=== PATIENT | male | born 1940 | race Caucasian/White ===

== ENCOUNTER 2022-06-15 09:02 | Outpatient (CLI) | payer MEDICARE, BC, SELFPAY ==
[2022-06-15 12:19] LABS: Chloride* 106 mmol/L (96-114); Sodium* 140 mmol/L (135-149)
[2022-06-15 12:20] LABS: Potassium* 4.6 mmol/L (3.6-5.1)
[2022-06-15 12:22] LABS: Carbon Dioxide* 27 mmol/L (20-32); Creatinine* 0.7 mg/dL (0.5-1.5); Estimated Glomerular Filt Rate 93 ml/min
[2022-06-15 12:23] LABS: Blood Urea Nitrogen* 14 mg/dL (7-30); Calcium* 9.6 mg/dL (8.4-10.6); Glucose* 101 mg/dL (60-115)
== END 2022-06-15 09:03 | disposition home or self-care (01) ==
LOC: NFLDREF 09:03
PROVIDERS: PCP Internal Medicine; Visit Provider Internal Medicine
DX: Z01.810 Encounter for preprocedural cardiovascular examination (principal)
CPT/HCPCS: 80048

== ENCOUNTER 2023-03-23 11:37 | Outpatient (REF) | payer MEDICARE, BC, SELFPAY ==
[2023-03-23 12:25] LABS: Basophils Absolute Auto 0.06 K/uL (0.00-0.30); Basophils Percent Auto 1.3 % (0.0-3.0); Eosinophils Absolute Auto 0.08 K/uL (0.00-0.50); Eosinophils Percent Auto 1.8 % (0.0-7.0); Hematocrit 38.8 % (37.0-53.0); Hemoglobin* 13.3 gm/dL (13.5-17.5); Lymphocytes Absolute Auto 1.33 K/uL (0.90-2.90); Lymphocytes Percent Auto 29.2 % (20-44); Mean Corpuscular HGB Conc 34 gm/dL (32-36); Mean Corpuscular Hemoglobin 30 pg (26-34); Mean Corpuscular Volume 87 fL (80-100); Monocytes Percent Auto 7.9 % (0.0-11.0); Neutrophils Absolute Auto 2.73 K/uL (1.7-7.0); Neutrophils Percent Auto 59.8 % (42.0-72.0); Platelet Count* 198 K/uL (140-440); RDW Coefficient of Variation % 11.7 % (11.5-15.5); Red Blood Count 4.44 m/uL (4.30-5.90); White Blood Count* 4.56 K/uL (4.50-11.00)
[2023-03-23 12:32] LABS: Slide Review Reflex No
[2023-03-23 13:03] LABS: Chloride* 105 mmol/L (96-114); Potassium* 4.1 mmol/L (3.6-5.1); Sodium* 139 mmol/L (135-149)
[2023-03-23 13:05] LABS: Aspartate Amino Transferase* 23 U/L (12-35); Bilirubin Total* 0.4 mg/dL (0.1-1.5); Carbon Dioxide* 27 mmol/L (20-32); Creatinine* 1.3 mg/dL (0.5-1.5); Estimated Glomerular Filt Rate 55 ml/min
[2023-03-23 13:06] LABS: Alanine Aminotransferase* 20 U/L (4-50); Alkaline Phosphatase* 46 U/L (40-150); Blood Urea Nitrogen* 27 mg/dL (7-30); Calcium* 9.1 mg/dL (8.4-10.6); Glucose* 96 mg/dL (60-115); Total Protein* 6.4 g/dL (6.0-8.3)
== END 2023-03-23 11:38 | disposition home or self-care (01) ==
LOC: NPINS 11:37
PROVIDERS: PCP Internal Medicine
DX: C64.2 Malignant neoplasm of left kidney, except renal pelvis (principal)
CPT/HCPCS: 80053; 85025

== ENCOUNTER 2024-04-01 09:00 | Outpatient (CLI) | payer MEDICARE, BC, SELFPAY ==
--- OUTSIDE RECORDS SUMMARY | 2024-04-02 13:41 | XMS_ITS | Encounter Summary ---
Author Organization [facility] Address [address] [place] [address] Care Team Providers Care Blue Split Trimmer Name Role Phone Elsewhere, Pcp Primary Care Provider Unavailabl e Reason for Visit * Outpatient (Routine) - Closed Specialty Diagnoses / Procedures Referred By Contact Referred To Contact Gastroenterology and Hepatology Diagnoses Cancer Renal Cell Carcinoma Personal History Wesley Qucah M.D. [address] [place] [address] [facility] Referral ID Status Reason Start Date Expiration Date V isits Requested Visits Authorized [id number] Closed Specialty Services Required 12/04/2023 06/04/2025 1 1 Encounter Details Date Type Department Care Team (Latest Contact Info) Description 02/27/2024 4:00 PM CDT Comprehensive Visit Division of Gastroenterology in [place], [place] [address] [place] [phone] Anup Rob M.D. [address] [place] [phone] Cancer Renal Cell Carcinoma Personal History Social History Tobacco Use Types Packs/Day Years Used Date Smoking Tobacco: Never Passive Smoke Exposure: Never Smokeless Tobacco: Never Alcohol Use Standard Drinks/Week Comments Not Currently 0 (1 standard drink = 0.6 oz pur e alcohol) [facility] Utilities Answer Date Recorded In the past 12 months has [employer], gas, oil, or water [employer] threatened to shut off services in your home? No 11/29/2023 Exercise Vital Sign Answer Date Recorde d On average, how many days pe r week do you engage in moderate to strenuous exercise (like a brisk walk)? 4 days 11/29/2023 On average, how many minutes do you engage in exercise at this level? 30 min 11/29/2023 Hunger Vital Sign Answer Date Recorded Within the past 12 months, y ou worried that your food would run out before you got the money to buy more. Never true 11/29/19 24 Within the past 12 months, t he food you bought just didn't last and you didn't have money to get more. Never true 11/29/2023 PRAPARE - Transportation Answer Date Re corded In the past 12 months, has l ack of transportation kept you from medical appointments or from getting medications? No 11/09 In the past 12 months, has l ack of transportation kept you from meetings, work, or from getting things needed for daily living? No 11/29/2023 Nutrition Answer Date Recorded On average, how many serving s of fruits and vegetables do you eat per day (serving size is equal to 1 cup or approximately the size of a tennis ball)? 3-5 11/29/2023 Dental Answer Date Recorded Dental: Regular Dentist Yes 11/29/19 Employment Answer Date Recorded Employment status Retired 11/29/2023 Sex and Gender Information Value Date Recorded Sex Assigned at Male 11/29/2023 8:24 PM CDT Gender Identity Male 11/29/2023 8:24 PM CDT Sexual Orientation Straight 11/29/2023 8: 24 PM CDT documented as of this encounter Consult Notes * Anup Rob M.D. - 02/27/2024 4:00 PM CDT SUBJECTIVE REASON FOR CONSULT Mr. Burr is an 83-year-old man who is referred for mesenteric lymphadenopathy. 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 He has had subsequent followup with CT scans, and he a has no known metastatic disease. He had a CT performed on November 27, 2023, that showed some prominent right-sided mesenteric lymph nodes that were likely to be reactive, although they could not exclude metastases. He had a followup scan on February 10, and the lymph nodes were stable. No other evidence for metastatic disease. It is interesting that hisprevious CT scan performed elsewhere in June had only 225 images compared to the 2023 images on the November scan. ASSESSMENT / PLAN We really do not know how long these lymph nodes have been there. 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 He is apparently scheduled for CT followup in June anyway, so I think monitoring these is the best step to take at this time. I do not see any need for any further intervention. Anup Rob M.D. CT CT Job ID: [id number]/jab documented in this encounter Plan of Treatment Upcoming Encounters Date Type Department Care Team (Late st Contact Info) Description 08/25/2024 1:30 PM SYSTEM SUPPORT ADMINISTRATOR Office Visit Department of Dermatology in [address] [phone] Gloria Rodrigez M.D. [address] [place] [phone] Discharge Disposition: Home or Self Care documented as of this encounter Visit Diagnoses Diagnosis Cancer Renal Cell Carcinoma Personal History documented in this encounter Care Teams Blue Split Trimmer Relationship Specialty Start Date End Date Elsewhere, Pcp PCP - General Medical Instructor 12/26/23 documented as of this encounter
--- OUTSIDE RECORDS SUMMARY | 2024-04-02 13:41 | XMS_ITS | Encounter Summary ---
Author Organization [facility] Address [address] [place] [address] Care Team Providers Care Feather Trimmer Name Role Phone Elsewhere, Pcp Primary Care Provider Unavailabl e Encounter Details Date Type Department Care Team (Latest Contact Info) Description 02/11/2024 1:33 PM CDT - 02/11/2024 2:05 PM CDT Hospital Encounter Department of Laboratory Medicine and Pathology, [facility] in [place], [place] [address] [place] [address] Cirilo Jay Jr., D.O. [address] [place] [address] Cancer Renal Cell Carcinoma Personal History; Hyperlipidemia Mixed; Solitary Kidney Acquired; Benign Prostatic Hyperplasia Without Obstruction; Gastroesophageal Reflux Disease Without Esophagitis Discharge Disposition: Home or Self Care Social History Tobacco Use Types Packs/Day Years Used Date Smoking Tobacco: Never Passive Smoke Exposure: Never Smokeless Tobacco: Never Alcohol Use Standard Drinks/Week Comments Not Currently 0 (1 standard drink = 0.6 oz pur e alcohol) [facility] Utilities Answer Date Recorded In the past 12 months has [employer], gas, oil, or water [employer] threatened to shut off services in your [...] PM CDT documented as of this encounter Medications at Time of Discharge Medication Sig Dispensed Refills Start Date End Date acetaminophen (TYLENOL) 500 mg tablet Take 1 tablet by mouth at bedtime as needed. 03/07/2023 cycloSPORINE (RESTASIS MULTIDOSE) 0.05 % drops oththalmic suspension Administer 1 drop into affected eye(s) 2 (two) times a day. multivitamin tablet Take 1 tablet by mouth daily. simvastatin (ZOCOR) 40 mg tablet Take 40 mg by mouth daily. tamsulosin (FLOMAX) 0.4 mg 24 hr capsule Take 1 capsule (0.4 mg total) by mouth daily. 90 capsule 3 08/13/2023 02/13/2024 documented as of this encounter Plan of Treatment Upcoming Encounters Date Type Department Care Team (Late st Contact Info) Description 08/25/2024 1:30 PM HEALTH CARE FACILITIES INSPECTOR Office Visit Department of Dermatology in [address] [phone] Gloria Rodrigez M.D. [address] [place] [phone] Discharge Disposition: Home or Self Care documented as of this encounter Procedures Procedure Name Priority Date/Time Associated Diagnosis Comments DIPSTICK, U Routine 02/11/2024 2:01 PM CDT MICROSCOPIC AUTOMATED Routine 02/11/2024 2:01 PM CDT PH, U Routine 02/11/2024 2:01 PM CDT ALBUMIN, RANDOM, U Routine 02/11/2024 2: 01 PM CDT Cancer Renal Cell Carcinoma Personal History Hyperlipidemia Mixed Solitary Kidney Acquired Benign Prostatic Hyperplasia Without Obstruction Gastroesophageal Reflux Disease Without Esophagitis OSMOLALITY, U Routine 02/11/2024 2:01 PM CDT URINALYSIS WITH MICROSCOPIC Routine 02/11/2024 2:01 PM CDT Cancer Renal Cell Carcinoma Personal History Hyperlipidemia Mixed Solitary Kidney Acquired Benign Prostatic Hyperplasia Without Obstruction Gastroesophageal Reflux Disease Without Esophagitis documented in this encounter Results * Osmolality, Urine (02/11/2024 2:01 PM CDT) Osmolality, U 632 150 - 1150 mOsm/kg 02/11/2024 3:05 PM CDT DTL Urine 02/11/2024 2:01 PM CDT 02/11/2024 2:14 PM CDT Hanh Chaudhary Jr.O. LAB URINE OR DERABLES [facility] [address] [place] [address], [place] DTL [facility] [address] [place] [address] * pH, Urine (02/11/2024 2:01 PM CDT) Pathologist [facility] pH, U 6.0 4.5 - 8.0 02/11/2024 3:0 5 PM CDT DTL Urine 02/11/2024 2:01 PM CDT 02/11/2024 2:14 PM CDT Cirilo Jay Jr., D.O. LAB URINE OR DERABLES Performing Organization Address [facility] Co de Phone Number [facility] [address] [place] [address], [facility] [address] [place] [address] * Dipstick, Urine (02/11/2024 2:01 PM CDT) [facility] Hemoglobin, QL, U Negative Negative 02/11/2024 3:13 PM CDT DTL Leukocyte Esterase, U Negative Negative 02/11/2024 3:13 PM CDT DTL Nitrite, U Negative Negative 02/11/2024 3:13 PM CDT DTL Ketone, U Negative Negative mg/dL 02/11/2024 3:13 PM CDT DTL Glucose, U Negative Negative mg/dL 02/11/2024 3:13 PM CDT DTL Urine 02/11/2024 2:01 PM CDT 02/11/2024 2:14 PM CDT Cirilo Jay Jr., D.O. LAB URINE OR DERABLES Performing Organization Address [facility] Co de Phone Number [facility] [address] [place] [address], [facility] [address] [place] [address] * Microscopic Automated (02/11/2024 2:01 PM CDT) [facility] Microscopy Normal 02/11/2024 3:13 PM CDT DTL RBC None Seen <3 /hpf 02/11/2024 3:13 PM CDT DTL WBC None Seen /hpf 02/11/2024 3:13 PM CDT DTL Comment: ----REFERENCE VALUE---- <4 ??(Males) <11 (Females) Urine 02/11/2024 2:01 PM CDT 02/11/2024 2:14 PM CDT Cirilo Jay Jr., D.O. LAB URINE OR DERABLES Performing Organization Address [facility] Co de Phone Number [facility] [address] [place] [address], [facility] [address] [place] [address] * Urinalysis, with Microscopic: Urine, Voided (02/11/2024 2:01 PM CDT) Source Urine, Urine, Voided 02/11/2024 2:14 PM CDT DTL Color, U Yellow 02/11/2024 2:14 PM CDT DTL Clarity, U Clear 02/11/2024 2:14 PM CDT DTL Protein, U 9 <26 mg/dL 02/11/2024 3:07 PM CDT DTL Protein/Osmola lity 0.14 <0.42 ratio 02/11/2024 3:07 PM CDT DTL Predicted 24 HR Protein, U 147 <229 mg/24 h 02/11/2024 3:07 PM CDT DTL Predicted Range 47-463 mg/24 h 02/11/2024 3:07 PM CDT DTL Urine (Urine, Voided) 02/11/2024 2:01 PM CDT 02/11/2024 2:14 PM CDT Cirilo Jay Jr., D.O. LAB URINE OR DERABLES Performing Organization Address [facility] Co de Phone Number [facility] [address] [place] [address], [facility] [address] [place] [address] * Albumin, Random, Urine (02/11/2024 2:01 PM CDT) Albumin, Random, U 5.8 mg/L 2023 7:33 AM CDT DTL Comment: ----ADDITIONAL INFORMATION---- This test has been modified from the rn lab's instructions. Its performance characteristics were determined by [facility] in a manner consistent with CLIA requirements. This test has not been cleared or approved by the U.S. Food and Drug Administration. Creatinine 86 mg/dL 02/11/2024 3:07 PM CDT DTL Albumin/Creatinine Ratio 7 <17 mg/g 02/12/2024 7:33 AM CDT DTL Urine (Urine, Voided) 02/11/2024 2:01 PM CDT 02/11/2024 2:31 PM CDT Cirilo Jay Jr., D.O. LAB URINE OR DERABLES [facility] [address] [place] [address], [facility] [address] [place] [address] documented in this encounter Visit Diagnoses Diagnosis Cancer Renal Cell Carcinoma Personal History Hyperlipidemia Mixed Solitary Kidney Acquired Benign Prostatic Hyperplasia Without Obstruction Gastroesophageal Reflux Disease Without Esophagitis documented in this encounter Care Teams Feather Trimmer Relationship Specialty Start Date End Date Elsewhere, Pcp PCP - General Direct Entry Midwife 12/26/23 documented as of this encounter
--- OUTSIDE RECORDS SUMMARY | 2024-04-02 13:41 | XMS_ITS ---
Author Organization [facility] Address [address] [place] [address] Care Team Providers Care Attendant Honor Bar Name Role Phone Unavailable Unavailable Unavailable Surgery Details Not on file Complications Check Surgery Details section. Procedure Estimated Blood Loss Check Surgery Details section. Procedure Findings Check Surgery Details section. Procedure Specimens Taken Check Surgery Details section.
--- OUTSIDE RECORDS SUMMARY | 2024-04-02 13:41 | XMS_ITS | Encounter Summary ---
Author Organization [facility] Address [address] [place] [address] Care Team Providers Care Disaster Recovery Consultant Name Role Phone Elsewhere, Pcp Primary Care Provider Unavailabl e Reason for Referral * MRI/CAT/PET Scan (Routine) - Authorized Specialty Diagnoses / Procedures Referred By Michele rivera Referred To Contact Radiology Diagnoses Cancer Renal Cell Carcinoma Personal History Solitary Kidney Acquired Benign Prostatic Hyperplasia Without Obstruction Procedures CT Abdomen Pelvis without and with IV Contrast Cirilo Jay Jr., D.O. [address] [place] [address] [facility] Referral ID Status Reason Start Date Expiration Date V isits Requested Visits Authorized [id number] Authorized 02/13/2024 02/12/2025 1 1 Reason for Visit * Appointment Request (Routine) - Closed Specialty Diagnoses / Procedures Referred By Michele rivera Referred To Contact Nephrology and Hypertension Referral ID Status Reason Start Date Expiration Date Visits Re quested Visits Authorized [id number] Closed 12/28/2023 12/27/2024 1 1 Encounter Details Date Type Department Care Team (Latest Contact Info) Description 02/13/2024 8:30 AM CDT External Outreach Division of Nephrology and Hypertension in [place], [place] [address] [place] [address] Cirilo Jay Jr., D.O. [address] [place] [address] Cancer Renal Cell Carcinoma Personal History (Primary Dx); Solitary Kidney Acquired; Benign Prostatic Hyperplasia Without Obstruction Social History Tobacco Use Types Packs/Day Years Used Date Smoking Tobacco: Never Passive Smoke Exposure: Never Smokeless Tobacco: Never Alcohol Use Standard Drinks/Week Comments Not Currently 0 (1 standard drink = 0.6 oz pur e alcohol) [facility] Utilities Answer Date Recorded In the past 12 months has e [email or web address], gas, oil, or water [employer] threatened to shut off services in your [...] money to buy more. Never true 11/29/19 Within the past 12 months, t he [...] PM CDT documented as of this encounter Last Filed Vital Signs Vital Sign Reading Time Taken Comments Blood Pressure 124/75 02/13/2024 8:38 AM CDT Pulse 63 02/13/2024 8:38 AM CDT Temperature - - Respiratory Rate - - Oxygen Saturation - - Inhaled Oxygen Concentration - - Weight 99.9 kg (220 lb 3.8 oz) 02/13/2024 8:38 A M CDT Height 178.4 cm (5' 10.24) 02/13/2024 8:38 AM C DT Body Mass Index 31.39 02/13/2024 8:38 AM CDT documented in this encounter Progress Notes * Cirilo Jay Jr., D.O. - 02/13/2024 8:30 AM CDT Referring Provider: ELSEWHERE, PCP SUBJECTIVE REASON FOR VISIT [facility] out reach CKD Follow-up regards CKD following left nephrectomy performed in July of 2022. HISTORY OF PRESENT ILLNESS Mr. Burr is a 83 y.o. male who presents with follow-up regarding his CKD with a baseline serum creatinine of 1.3-1.4 mg/dL following resection of a large left renal cell carcinoma in July of 2022. Please see my prior note, he suffered gross hematuria in June of 2022 as he was wintering in [place]. Was discovered to have a 10 cm left renal mass for which he underwent EN bloc resection along with lymph node dissection and fortunately, no evidence of metastatic disease was found. His baseline serum creatinine has remained between 1.3 and 1.4 since that time. Appreciate his ongoing active surveillance has demonstrated no evidence of metastatic disease or recurrence in the prior tumor site. 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 His CTof the chest done back in December, as well as a CT abdomen and pelvis currently do not demonstrate any recurrent disease. Appreciate a chest x-ray performed yesterday was normal as well. He Feels well in all respects has no constitutional complaints no fevers no chills. He has struggling a bit with nocturia, he uses tamsulosin in the morning. We discussed increasing the dose and having him take this at nighttime. Appreciate that he has had no other constitutional complaints no chest pain no shortness of breath and I reviewed the evaluations performed. 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 Renal Disease 08/2022 Current Outpatient Medications: acetaminophen (TYLENOL) 500 mg tablet, Take 1 tablet by mouth at bedtime as needed., Disp: , Rfl: cycloSPORINE (RESTASIS MULTIDOSE) 0.05 % drops oththalmic suspension, Administer 1 drop into affected eye(s) 2 (two) times a day., Disp: , Rfl: multivitamin tablet, Take 1 tablet by mouth daily., Disp: , Rfl: simvastatin (ZOCOR) 40 mg tablet, Take 40 mg by mouth daily., Disp: , Rfl: tamsulosin (FLOMAX) 0.4 mg 24 hr capsule, Take 1 capsule (0.4 mg total) by mouth daily., Disp: 90 capsule, Rfl: 3 REVIEW OF SYSTEMS All other systems reviewed and are negative. OBJECTIVE BP 124/75 Pulse 63 Ht 178.4 cm Wt 99.9 kg BMI 31.39 kg/m?? PHYSICAL EXAMINATION General: Awake alert oriented HEENT: GENESIS, EOMI, Mucous membranes moist, no oral lesions Neck: No Masses, No Bruits Lungs: Clear to ascultation Heart: Regular Rate and Rhythm, No ectopy he has a 3/6 systolic ejection murmur at left lower sternal edge Abdomen: Soft, Non-tender Extremities: No cyanosis, No clubbing: No edema Neuro: Cranial Nerves intact, Gait is normal, strength grossly normal Skin: no suspicious lesions identified Psychiatric: Normal affect DIAGNOSTICS Note serum creatinine 1.4 mg/dL, appreciate normal urinalysis without hematuria or albuminuria normal CBC normal chemistries otherwise. I congratulated him. Also reviewed his imaging with him. ASSESSMENT / PLAN #1 Cancer Renal Cell Carcinoma Personal History He is status post left nephrectomy, and doing well from this perspective I congratulated him. We will continue with active surveillance, he will be seen by our [facility] urologists and I will also continue to follow him regarding his solitary functional kidney and CKD stage IIIA with a serum creatinine of 1.4 mg/dL. #2 Solitary Kidney Acquired Going forward: 1. Low-sodium diet 2. Goal blood pressures less than 130s over 80s 3. No NSAIDs or Shelton 2 inhibitors 4. Stay well hydrated-drinking at least 4 8 oz glasses of water per day 5. I will see him back in 6 months with pre scheduled labs in [place]. #3 Benign Prostatic Hyperplasia Without Obstruction He has been having issues with irritated outlet, and lower urinary tract symptoms, predominantly nocturia incomplete emptying. I will increase his tamsulosin to 2 x 0.4 mg orally daily, while his current supply is used up and then switch to 0.8 mg per day tablets. He will switch taking this at night. Total time: 35 minutes Counseling Time: 30 minutes Cirilo Jay Jr., D.O. documented in this encounter Plan of Treatment Upcoming Encounters Date Type Department Care Team (Late st Contact Info) Description 08/25/2024 1:30 PM POLICY ADVISER Office Visit Department of Dermatology in [address] [phone] Gloria Rodrigez M.D. [address] [place] [address] Discharge Disposition: Home or Self Care Scheduled Orders Name Type Priority Associated Diagnoses Orde r Schedule CBC with Differential, Blood Lab Routine Cancer Renal Cell Carcinoma Personal History Solitary Kidney Acquired Benign Prostatic Hyperplasia Without Obstruction Expected: 08/14/2024 (Approximate), Expires: 02/12/2025 Albumin, Random, Urine Lab Routine Cancer Renal Cell Carcinoma Personal History Solitary Kidney Acquired Benign Prostatic Hyperplasia Without Obstruction Expected: 08/14/2024 (Approximate), Expires: 02/12/2025 Renal Function Panel Lab Routine Cancer Renal Cell Carcinoma Personal History Solitary Kidney Acquired Benign Prostatic Hyperplasia Without Obstruction Expected: 08/14/2024 (Approximate), Expires: 02/12/2025 Urinalysis, with Microscopic: Urine, Voided Lab Routine Cancer Renal Cell Carcinoma Personal History Solitary Kidney Acquired Benign Prostatic Hyperplasia Without Obstruction Expected: 08/14/2024 (Approximate), Expires: 02/12/2025 CT Abdomen Pelvis without and with IV Contrast Imaging RAD - Routine (most inpatients and all outpatients) Cancer Renal Cell Carcinoma Personal History Solitary Kidney Acquired Benign Prostatic Hyperplasia Without Obstruction Expected: 08/14/2024, Expires: 05/15/2025 documented as of this encounter Visit Diagnoses Diagnosis Cancer Renal Cell Carcinoma Personal History- Primary Solitary Kidney Acquired Benign Prostatic Hyperplasia Without Obstruction documented in this encounter Care Teams Disaster Recovery Consultant Relationship Specialty Start Date End Date Elsewhere, Pcp PCP - General Hvac Engineer 12/26/23 documented as of this encounter
--- OUTSIDE RECORDS SUMMARY | 2024-04-02 13:41 | XMS_ITS | Clinical Summary ---
Author Organization [facility] Address [address] [place] [address] Care Team Providers Care Power Transmission Engineer Name Role Phone Elsewhere, Pcp Primary Care Provider Unavailabl e Source Comments Patient records contain information from all sites at [facility]. For routine questions regarding patient records, call [phone] during business hours, M-F 8:00 AM - 5:00 PM Central Time. Record requests for emergency care only can be directed to [phone] at any time.[facility] Allergies No known active allergies Medications Medication Sig Dispensed Refills Start Date End Date Status cycloSPORINE (RESTASIS MULTIDOSE) 0.05 % drops oththalmic suspension Administer 1 drop into affected eye(s) 2 (two) times a day. Active simvastatin (ZOCOR) 40 mg tablet Take 40 mg by mouth daily. Active acetaminophen (TYLENOL) 500 mg tablet Take 1 tablet by mouth at bedtime as needed. 03/07/2023 Active multivitamin tablet Take 1 tablet by mouth daily. Active tamsulosin (FLOMAX) 0.4 mg 24 hr capsule Take 2 capsules (0.8 mg total) by mouth daily. 180 capsule 3 02/14/2024 02/13/2025 Active Active Problems Problem Noted Date Diagnosed Date Hyperlipidemia Mixed 08/13/2023 Gastroesophageal Reflux Disease Without Esophagi tis 08/13/2023 Benign Prostatic Hyperplasia Without Obstruction 08/13/2023 Solitary Kidney Acquired 08/13/2023 Cancer Renal Cell Carcinoma Personal History 12/2022 Encounters Date Type Department Care Team Description 02/27/2024 4:00 PM CDT Comprehensive Visit Division of Gastroenterology in [place], [place] [address] [place] [phone] Anup Rob M.D. Cancer Renal Cell Carcinoma Personal History 02/27/2024 11:30 AM CDT Clinical Communication Virtual Review in [place], [place] [address] [place] [phone] 02/14/2024 Orders Only Division of Nephrology and Hypertension in [place], [place] [address] [place] [phone] Cirilo Jay Jr., D.OSarah 02/13/2024 8:30 AM CDT External Outreach Division of Nephrology and Hypertension in [place], [place] [address] [place] [phone] Cirilo Jay Jr., D.OSarah Cancer Renal Cell Carcinoma Personal History (Primary Dx); Solitary Kidney Acquired; Benign Prostatic Hyperplasia Without Obstruction 02/11/2024 2:47 PM CDT - 02/11/2024 11:59 PM CDT Hospital Encounter Department of Radiology, [facility] in [place], [place] [address] [place] [phone] Cirilo Jay Jr., D.OSarah Cancer Renal Cell Carcinoma Personal History; Hyperlipidemia Mixed; Solitary Kidney Acquired; Benign Prostatic Hyperplasia Without Obstruction; Gastroesophageal Reflux Disease Without Esophagitis Discharge Disposition: Home or Self Care 02/11/2024 2:06 PM CDT - 02/11/2024 2:46 PM CDT [facility] [place] [place] [address] [place] [phone] Cirilo Jay Jr., D.OSarah Cancer Renal Cell Carcinoma Personal History; Hyperlipidemia Mixed; Solitary Kidney Acquired; Benign Prostatic Hyperplasia Without Obstruction; Gastroesophageal Reflux Disease Without Esophagitis Discharge Disposition: Home or Self Care 02/11/2024 1:33 PM CDT - 02/11/2024 2:05 PM CDT Hospital Encounter Department of Laboratory Medicine and Pathology, [facility] in [place], [place] [address] [place] [phone] Cirilo Jay Jr., D.O. Cancer Renal Cell Carcinoma Personal History; Hyperlipidemia Mixed; Solitary Kidney Acquired; Benign Prostatic Hyperplasia Without Obstruction; Gastroesophageal Reflux Disease Without Esophagitis Discharge Disposition: Home or Self Care 02/11/2024 1:33 PM CDT - 02/11/2024 2:05 PM CDT Hospital Encounter Department of Laboratory Medicine and Pathology, [facility] in [place], [place] [address] [place] [phone] Cirilo Jay Jr., D.Ayaz. Cancer Renal Cell Carcinoma Personal History; Hyperlipidemia Mixed; Solitary Kidney Acquired; Benign Prostatic Hyperplasia Without Obstruction; Gastroesophageal Reflux Disease Without Esophagitis Discharge Disposition: Home or Self Care 01/04/2024 11:55 AM CDT - 01/04/2024 11:59 PM CDT Hospital Encounter Department of Cardiovascular Diseases in [place], [place] [address] [place] [phone] Marcia Dewitt, GEO, C.N.P., D.N.P. [facility] Discharge Disposition: Home or Self Care from Last 3 Months Family History Medical History Relation Name Comments Coronary artery disease Father Francisco Burr Heart attack age 75, mild Relation Name Status Comments Father Francisco Burr Social History Tobacco Use Types Packs/Day Years Used Date Smoking Tobacco: Never Passive Smoke Exposure: Never Smokeless Tobacco: Never Tobacco Cessation:Counseling Given: Not Answered Alcohol Use Standard Drinks/Week Comments Not Currently 0 (1 standard drink = 0.6 oz pur e alcohol) [facility]OLUS PHARMACEUTICALSities Answer Date Recorded In the past 12 months has [employer], [employer]ath [employer] Life, oil, or water [employer] threatened to shut off services in your [...] Orientation Straight 11/29/2023 8: 24 PM CDT Last Filed Vital Signs Vital Sign Reading [...] Mass Index 31.39 02/13/2024 8:38 AM CDT Plan of Treatment Upcoming Encounters Date Type Department Care Team (Late st Contact Info) Description 08/25/2024 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 [address] [place] [phone] Discharge Disposition: Home or Self Care Health Maintenance Due Date Last Done Comments COVID-19 Vaccine (2022- 4 season) 2023 07/12/2021, 10/25/2020, 10/01/2020 Depression Screening (Annual PHQ-2) 09/10/2023 Influenza Vaccine (#1) 2024 , 07/10/2022, 05/20/2022, Additional history exists DTaP,Tdap,and Td Vaccines (6 - Td or Tdap) 04/07/2031 04/07/2021, 02/10/2011, 09/10/2010, Additional history exists Pneumococcal vaccine (65+ years) Completed 03/27/2016, 06/10/2015, 05/24/2015, Additional history exists Zoster Vaccines Completed 03/31/2020, 02/08, 12/25/2018, Additional history exists Fall Risk Screen (Annual) Completed 01/04/2024 Procedures Procedure Name Priority Date/Time Associated Diagnosis Comments CT ABDOMEN WITH IV CONTRAST RAD - Routine (most inpatients and all outpatients) 02/11/2024 4:11 PM CDT Cancer Renal Cell Carcinoma Personal History Hyperlipidemia Mixed Solitary Kidney Acquired Benign Prostatic Hyperplasia Without Obstruction Gastroesophageal Reflux Disease Without Esophagitis CREATININE, POCT, B Routine 02/11/2024 3:26 PM CDT CREATININE, POCT, B Routine 02/11/2024 3:26 PM CDT DX CHEST AP OR PA AND LATERAL 2 VIEWS RAD - Routine (most inpatients and all outpatients) 02/11/2024 2:12 PM CDT Cancer Renal Cell Carcinoma Personal History Hyperlipidemia Mixed Solitary Kidney Acquired Benign Prostatic Hyperplasia Without Obstruction Gastroesophageal Reflux Disease Without Esophagitis OSMOLALITY, U Routine 02/11/2024 2:01 PM CDT PH, U Routine 02/11/2024 2:01 PM CDT DIPSTICK, U Routine 02/11/2024 2:01 PM CDT MICROSCOPIC AUTOMATED Routine 02/11/2024 2:01 PM CDT URINALYSIS WITH MICROSCOPIC Routine 02/11/2024 2:01 PM CDT Cancer Renal Cell Carcinoma Personal History Hyperlipidemia Mixed Solitary Kidney Acquired Benign Prostatic Hyperplasia Without Obstruction Gastroesophageal Reflux Disease Without Esophagitis ALBUMIN, RANDOM, U Routine 02/11/2024 2: 01 PM CDT Cancer Renal Cell Carcinoma Personal History Hyperlipidemia Mixed Solitary Kidney Acquired Benign Prostatic Hyperplasia Without Obstruction Gastroesophageal Reflux Disease Without Esophagitis RENAL FUNCTION PANEL, S Routine 02/11/2024 1:57 PM CDT Cancer Renal Cell Carcinoma Personal History Hyperlipidemia Mixed Solitary Kidney Acquired Benign Prostatic Hyperplasia Without Obstruction Gastroesophageal Reflux Disease Without Esophagitis LIPID PANEL, S Routine 02/11/2024 1:57 PM CDT Cancer Renal Cell Carcinoma Personal History Hyperlipidemia Mixed Solitary Kidney Acquired Benign Prostatic Hyperplasia Without Obstruction Gastroesophageal Reflux Disease Without Esophagitis CBC WITH DIFFERENTIAL, B Routine 02/11/2024 1:57 PM CDT Cancer Renal Cell Carcinoma Personal History Hyperlipidemia Mixed Solitary Kidney Acquired Benign Prostatic Hyperplasia Without Obstruction Gastroesophageal Reflux Disease Without Esophagitis (TTE) 2D ECHO DOPPLER COLOR Routine 01/04/2024 1:36 PM CDT [facility] from Last 3 Months Results * CT Abdomen with IV Contrast (02/11/2024 4:11 PM CDT) Anatomical Region Laterality Modality Abdomen, Abdominal RST LOS, Abdominal ARZ LOS, Abdominal FLA LOS N/A Computed Tomography, Comput ed Tomography 02/11/2024 3:53 PM CDT Impressions 02/12/2024 8:22 AM CDT 1. No evidence of recurrent or metastatic disease in the abdomen or pelvis. 2. Stable prominent mesenteric lymph nodes. Narrative 02/12/2024 8:22 AM CDT EXAM: ??CT ABDOMEN WITH IV CONTRAST COMPARISON: ??CT of the abdomen and pelvis 11/27/2023 FINDINGS: ??Postoperative changes of left nephrectomy. No evidence of locally recurrent renal cell carcinoma in the nephrectomy bed. Small right renal cyst. Prominent mesenteric lymph nodes are not substantially changed (series 4, image 84). No other enlarged lymph nodes in the abdomen or pelvis. 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 No worrisome liver lesion. The spleen, gallbladder and adrenal glands are normal in appearance. Normal caliber aorta with moderate atherosclerotic calcification. Colonic diverticulosis. Normal caliber small bowel and colon. Normal appendix. Stable ventral abdominal wall hernia containing nonobstructed small bowel. The prostate gland is enlarged. The seminal vesicles are symmetric. The urinary bladder appears normal. No ascites. Multilevel degenerative disc disease of the lumbosacral spine. No worrisome bone lesion. Mild scarring at both lung bases. Procedure Note Derrick Lauren M.D. - 02/12/2024 EXAM: CT ABDOMEN WITH IV CONTRAST COMPARISON: CT of the abdomen and pelvis 11/27/2023 FINDINGS: Postoperative changes of left nephrectomy. No evidence oflocally recurrent renal cell carcinoma in the nephrectomy bed. Small rightrenal cyst. Prominent mesenteric lymph nodes are not substantially changed (series 4,image 84). No other enlarged lymph nodes in the abdomen or pelvis. 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 No worrisome liver lesion.The spleen, gallbladder and adrenal glands are normal in appearance. Normal caliber aorta with moderate atherosclerotic calcification. Colonicdiverticulosis. Normal caliber small bowel and colon. Normal appendix.Stable ventral abdominal wall hernia containing nonobstructed smallbowel. The prostate gland is enlarged. The seminal vesicles are symmetric. Theurinary bladder appears normal. No ascites. Multilevel degenerative discdisease of the lumbosacral spine. No worrisome bone lesion. Mild scarringat both lung bases. IMPRESSION: 1. No evidence of recurrent or metastatic disease in the abdomen orpelvis. 2. Stable prominent mesenteric lymph nodes. Hanh Chaudhary Jr.O. RAVEN CT PROCE DURES * Creatinine, POCT (02/11/2024 3:26 PM CDT) Only the most recent of2 resultswithin the time period is included. Creatinine, POCT, B 1.4 0.7 - 1.4 mg/dL 02/11/2024 3:29 PM CDT PCDT Comment: ----ADDITIONAL INFORMATION---- Performed at the Point of Care Blood 02/11/2024 3:26 PM CDT 02/11/2024 3:29 PM CDT Unknown Provider LAB POCT ORDERABLES - DEVICE POC [facility] [address] [place] [address], [facility] PCDT [facility] [place] POC [address] [place] [address] * DX Chest AP or PA and Lateral 2 Views (02/11/2024 2:12 PM CDT) Anatomical Region Laterality Modality Chest, Thoracic RST LOS, Tho racic ARZ LOS, Thoracic FLA LOS N/A Digital Radiography Impressions 02/11/2024 2:50 PM CDT No change from 07/02/2023. Mild linear scarring in the middle lobe and bilateral lung bases. Dilatation and tortuosity of the thoracic aorta with mild calcification in correlation with CT chest 12/07/2023. Prominent pericardial fat over the cardiac apex. Slight superior wedging of a few mid thoracic vertebral bodies. Hypertrophic degenerative changes of the skeleton. Chest otherwise negative. Narrative 02/11/2024 2:50 PM CDT EXAM: ??DX CHEST AP OR PA AND LATERAL 2 VIEWS Procedure Note Renetta Gonzalez M.D. - 02/11/2024 EXAM: DX CHEST AP OR PA AND LATERAL 2 VIEWS IMPRESSION: No change from 07/02/2023. Mild linear scarring in the middle lobe andbilateral lung bases. Dilatation and tortuosity of the thoracic aorta withmild calcification in correlation with CT chest 12/07/2023. Prominentpericardial fat over the cardiac apex. Slight superior wedging of a few mid thoracic vertebralbodies. Hypertrophic degenerative changes of the skeleton. Chest otherwisenegative. Cirilo Jay Jr., D.O. IMG DIAGNOST IC IMAGING PROCEDURES * Dipstick, Urine (02/11/2024 2:01 PM CDT) Hemoglobin, QL, U Negative Negative 02/11/2024 3:13 [...] LAB URINE OR DERABLES Performing Organization Address City/[facility] Co de Phone Number [facility] [address] [place] [address], [address] [address] * Microscopic Automated (02/11/2024 2:01 PM CDT) Pathologist [facility] Microscopy Normal 02/11/2024 3:13 PM CDT DTL RBC None Seen <3 /hpf 02/11/2024 3:13 PM CDT DTL WBC None Seen /hpf 02/11/2024 3:13 PM CDT DTL Comment: ----REFERENCE VALUE---- <4 ??(Males) <11 (Females) Urine 02/11/2024 2:01 PM CDT 02/11/2024 2:14 PM CDT Cirilo Jay Jr., D.O. LAB URINE OR DERABLES Performing Organization Address City/[facility]/ZIP Co de Phone Number [facility] [address] [place] [address], [place] [address] * pH, Urine (02/11/2024 2:01 PM CDT) Pathologist [facility] pH, U 6.0 4.5 - 8.0 02/11/2024 3:0 5 PM CDT DTL Urine 02/11/2024 2:01 PM CDT 02/11/2024 2:14 PM CDT Cirilo Jay Jr., D.O. LAB URINE OR DERABLES Performing Organization Address [facility] de Phone Number [facility] [address] [place] [address] * Albumin, Random, Urine (02/11/2024 2:01 PM CDT) Albumin, Random, U 5.8 mg/L 2023 7:33 AM CDT DTL Comment: ----ADDITIONAL INFORMATION---- This test has been modified from the boiler maker's instructions. Its performance characteristics were determined by [facility] in a manner consistent with CLIA requirements. This test has not been cleared or approved by the U.S. Food and Drug Administration. Creatinine 86 mg/dL 02/11/2024 3:07 PM CDT DTL Albumin/Creatinine Ratio 7 <17 mg/g 02/12/2024 7:33 AM CDT DTL Urine (Urine, Voided) 02/11/2024 2:01 PM CDT 02/11/2024 2:31 PM CDT Cirilo Jay Jr., D.O. LAB URINE OR DERABLES Performing Organization Address City/[facility] Co de Phone Number [facility] [address] [place], [place] [address] [place] [address] [address] [place] [address] * Osmolality, Urine (02/11/2024 2:01 PM CDT) Osmolality, U 632 150 - 1150 mOsm/kg 02/11/2024 3:05 PM CDT DTL Urine 02/11/2024 2:01 PM CDT 02/11/2024 2:14 PM CDT Cirilo Jay Jr., D.O. LAB URINE OR DERABLES Performing Organization Address City/[facility]/ZIP Co de Phone Number [facility] [address] [place] [address], [address] [address] * Urinalysis, with Microscopic: Urine, Voided (02/11/2024 [...] Jay Jr., D.O. LAB URINE OR DERABLES [facility] [address] [place] [address], [facility] [address] [place] [address] * Lipid Panel (02/11/2024 1:57 PM CDT) Triglycerides 88 mg/dL 02/11/2024 3:21 PM CDT DTL Comment: ----REFERENCE VALUE---- Normal: <150 mg/dL Borderline High: 150-199 mg/dL High: 200-499 mg/dL Very High: > or =500 mg/dL Cholesterol, Total 153 mg/dL 2023 3:21 PM CDT DTL Comment: ----REFERENCE VALUE---- Desirable: < 200 mg/dL Borderline High: 200 - 239 mg/dL High: > or = 240 mg/dL Cholesterol, LDL, Calculated 84 mg/dL 02/11/2024 3:21 PM CDT DTL Comment: ----REFERENCE VALUE---- Desirable: <100 mg/dL Above Desirable: 100-129 mg/dL Borderline High: 130-159 mg/dL High: 160-189 mg/dL Very High: >=190 mg/dL ----ADDITIONAL INFORMATION---- LDL cholesterol calculated using the Grajeda/NIH equation. Cholesterol, HDL, S 52 >=40 mg/dL 02/11/2024 3:21 PM CDT DTL Cholesterol, Non-HDL, Calculated 101 mg/dL 02/11/2024 3:21 PM CDT DTL Comment: ----REFERENCE VALUE---- Desirable: <130 mg/dL Above Desirable: 130-159 mg/dL Borderline High: 160-189 mg/dL High: 190-219 mg/dL Very High: > or =220 mg/dL Fasting (8 HR or more) Yes 02/11/2024 2:50 PM CDT DTL Blood (Blood, Venous) 02/11/2024 1:57 PM CDT 02/11/2024 2:50 PM CDT Cirilo Jay Jr., D.O. LAB BLOOD AD D-ON [facility] [address] [place] [address], [facility] [address] [place] [address] * (ABNORMAL) Renal Function Panel (02/11/2024 1:57 PM CDT) Potassium, S 4.8 3.6 - 5.2 mmol/L 02/11/2024 3:21 PM CDT DTL Sodium, S 142 135 - 145 mmol/L 02/11/2024 3:21 PM CDT DTL Chloride, S 106 98 - 107 mmol/L 02/11/2024 3:21 PM CDT DTL Bicarbonate, S 28 22 - 29 mmol/L 02/11/2024 3:21 PM CDT DTL Anion Gap 8 7 - 15 02/11/2024 3:21 PM CDT DTL BUN (Blood Urea Nitrogen), S 24 8 - 24 mg/dL 02/11/2024 3:21 PM CDT DTL Creatinine 1.41(H) 0.74 - 1.35 mg/dL 02/11/2024 3:21 PM CDT DTL Estimated GFR (eGFR) 50(L) >=60 mL/min/BSA 02/11/2024 3:21 PM CDT DTL Comment: Estimated GFR calculated using the 2020 CKD_EPI creatinine equation. Calcium, Total, S 9.9 8.8 - 10.2 mg/dL 02/11/2024 3:21 PM CDT DTL Glucose, S 84 70 - 140 mg/dL 02/11/2024 3:21 PM CDT DTL Albumin, S 4.5 3.5 - 5.0 g/dL 02/11/2024 3:21 PM CDT DTL Phosphorus (Inorganic), S 3.7 2.5 - 4.5 mg/dL 02/11/2024 3:21 PM CDT DTL Blood (Blood, Venous) 02/11/2024 1:57 PM CDT 02/11/2024 2:50 PM CDT Cirilo Jay Jr. D.O. LAB BLOOD AD D-ON [facility] [address] [place] [address], [facility] [place]note 2[facility] [address] [place] [address] * (ABNORMAL) CBC with Differential, Blood (02/11/2024 1:57 PM CDT) Hemoglobin 13.3 13.2 - 16.6 g/dL 02/11/2024 2:28 PM CDT DTL Hematocrit 39.7 38.3 - 48.6 % 02/11/2024 2:28 PM CDT DTL Erythrocytes 4.46 4.35 - 5.65 x10(12)/L 02/11/2024 2:28 PM CDT DTL MCV 89.0 78.2 - 97.9 fL 02/11/2024 2:28 PM CDT DTL RBC Distrib Width 11.6(L) 11.8 - 14.5 % 02/11/2024 2:28 PM CDT DTL Platelet Count 176 135 - 317 x10(9)/L 02/11/2024 2:28 PM CDT DTL Leukocytes 4.3 3.4 - 9.6 x10(9)/L 02/11/2024 2:28 PM CDT DTL Neutrophils 2.51 1.56 - 6.45 x10(9)/L 02/11/2024 2:28 PM CDT DHPM Lymphocytes 1.25 0.95 - 3.07 x10(9)/L 02/11/2024 2:28 PM CDT DTL Monocytes 0.39 0.26 - 0.81 x10(9)/L 02/11/2024 2:28 PM CDT DTL Eosinophils 0.07 0.03 - 0.48 x10(9)/L 02/11/2024 2:28 PM CDT DTL Basophils 0.05 0.01 - 0.08 x10(9)/L 02/11/2024 2:28 PM CDT DTL Blood (Blood, Venous) 02/11/2024 1:57 PM CDT 02/11/2024 2:16 PM CDT Cirilo Jay Jr., D.OSarah LAB BLOOD AD D-ON [facility] [address] [place] [address], [facility] DTL [facility] [address] [place] [address] [facility] [address] [place] [address] * (TTE) 2D ECHO DOPPLER COLOR (01/04/2024 1:36 PM CDT) Ejection Fraction 60 MC CV EIMS Sinus of Valsalva 44 MC CV EIMS Sinotubular Junction 37 MC CV EIMS Proximal Ascending Aorta 40 MC CV EIMS Mid-Ascending Aorta 43 MC CV EIMS LV Mass Index 110 MC CV EIMS LV End-Diastolic Diameter 53 MC CV EIMS LV End-Systolic Diameter 34 MC CV EIMS MV E Velocity 0.8 MC CV EIMS MV A Velocity 0.9 MC CV EIMS MV E/A 0.89 MC CV EIMS MV e' Velocity Medial 0.09 MC CV EIMS MV e' Velocity Lateral 0.11 MC CV EIMS MV E/e' Medial 8.9 MC CV EIMS MV E/e' Lateral 7.3 MC CV EIMS Left ventricular stroke volume index 53 MC CV EIMS Cardiac Output 6.65 MC CV EIMS Cardiac Index 3.02 MC CV EIMS LV Interventricular Septal Wall Thickness 12 MC CV EIMS LV Posterior Wall Thickness 11 MC CV EIMS LV Relative Wall Thickness 42 MC CV EIMS TAPSE 32 MC CV EIMS Tricuspid Annular S? 0.17 MC CV EIMS TR Vmax 2.42 MC CV EIMS RA Pressure 10 MC CV EIMS RV Systolic Pressure 33 MC CV EIMS Estimated diastolic pulmonary artery pressure 12 MC CV EIMS TR Vmax/RVOT TVI 0.17 MC CV EIMS IVC Diameter 25 MC CV EIMS AV mean gradient 9 MC CV EIMS Aortic valve area 2.79 MC CV EIMS Aortic Valve Area Index 1.27 MC CV EIMS Aortic Valve Dimensionless Index 0.62 MC CV EIMS LA Volume Index 35 MC CV EIMS Aortic Valve Systolic Peak Velocity 2.1 MC CV EIMS Anatomical Region Laterality Modality Echocardiography 01/04/2024 12:2 4 PM CDT Impressions 01/04/2024 1:48 PM CDT LEFT VENTRICLE:Normal left ventricular chamber size. Normal left ventricular geometry. Calculated 3-D volumetric left ventricular ejection fraction 60%. No regional wall motion abnormalities. Normal left ventricular diastolic function. RIGHT VENTRICLE:Normal right ventricular chamber size. Normal right ventricular systolic function. Estimated right ventricular systolic pressure 33 mmHg (right atrial pressure of 10 mmHg). ATRIA:Borderline enlarged left atrial size. Left atrial volume index 35 ml/m2. Normal right atrial size. CARDIAC VALVES:Trileaflet aortic valve. Trivial ??aortic valve stenosis. Aortic valve systolic mean Doppler gradient 9 mmHg. Aortic valve area by Doppler 2.79 cm2. Trivial aortic valve regurgitation. Mildly thickened mitral valve. Trivial mitral valve regurgitation. Normal pulmonary valve. Normal pulmonary valve systolic velocities. Trivial pulmonary valve regurgitation. Normal tricuspid valve. Trivial tricuspid valve regurgitation. OTHER ECHO FINDINGS:Enlarged inferior vena cava size with normal inspiratory collapse (>50%). Lipomatous atrial septum. Normal sinus of Valsalva diameter of 44 mm. Normal mid ascending aorta diameter of 43 mm. No abdominal aortic aneurysm. Normal abdominal aorta Doppler flow pattern. No atrial level shunt by color flow imaging. No intracardiac mass or thrombus, but the left atrial appendage cannot be visualized adequately with transthoracic echo to exclude thrombus in this location. No ?? pericardial effusion. Prominent Chiari network in the right atrium best seen on image #130, 131. For the complete report, see the Order-Level Documents. Narrative 01/04/2024 1:48 PM CDT For the complete report, see the Order-Level Documents. Hemodynamics Heart Rate: 57 BPM Blood Pressure: 133 / 78 mmHg ECG: Sinus rhythm with ectopics, 1st degree A-V block, Right bundle branch block Final Impressions 1. Normal left ventricular chamber size, no regional wall motion abnormalities, calculated 3-D volumetric ejection fraction 60%. 2. Normal left ventricular geometry, normal diastolic function. 3. Normal right ventricular chamber size, normal systolic function, estimated right ventricular systolic pressure 33 mmHg (right atrial pressure of 10 mmHg). 4. Borderline enlarged left atrial size. 5. Trivial ??aortic valve stenosis, systolic mean Doppler gradient 9 mmHg, valve area by Doppler 2.79 cm2. 6. No ??pericardial effusion. 7. Enlarged inferior vena cava size with normal inspiratory collapse (>50%). 8. In the absence of a change in clinical status, consensus guidelines recommend a repeat transthoracic echocardiogram in 3-5 years to reevaluate the aortic stenosis. 9. There are no previous [facility] echocardiograms available for comparison. Procedure Note Maame Mccabe M.B.B.S., Ph.D. - 01/04/2024 For the complete report, see the Order-Level Documents. Hemodynamics Heart Rate: 57 BPM Blood Pressure: 133 / 78 mmHg ECG: Sinus rhythm with ectopics, 1st degree A-V block, Right bundle branchblock Final Impressions 1. Normal left ventricular chamber size, no regional wall motionabnormalities, calculated 3-D volumetric ejection fraction 60%. 2. Normal left ventricular geometry, normal diastolic function. 3. Normal right ventricular chamber size, normal systolic function,estimated right ventricular systolic pressure 33 mmHg (right atrialpressure of 10 mmHg). 4. Borderline enlarged left atrial size. 5. Trivial aortic valve stenosis, systolic mean Doppler gradient 9 mmHg,valve area by Doppler 2.79 cm2. 6. No pericardial effusion. 7. Enlarged inferior vena cava size with normal inspiratory collapse(>50%). 8. In the absence of a change in clinical status, consensus guidelinesrecommend a repeat transthoracic echocardiogram in 3-5 years to reevaluatethe aortic stenosis. 9. There are no previous [facility] echocardiograms available forcomparison. Findings LEFT VENTRICLE:Normal left ventricular chamber size. Normal leftventricular geometry. Calculated 3-D volumetric left ventricular ejectionfraction 60%. No regional wall motion abnormalities. Normal leftventricular diastolic function. RIGHT VENTRICLE:Normal right ventricular chamber size. Normal rightventricular systolic function. Estimated right ventricular systolicpressure 33 mmHg (right atrial pressure of 10 mmHg). ATRIA:Borderline enlarged left atrial size. Left atrial volume index 35ml/m2. Normal right atrial size. CARDIAC VALVES:Trileaflet aortic valve. Trivial aortic valve stenosis.Aortic valve systolic mean Doppler gradient 9 mmHg. Aortic valve area byDoppler 2.79 cm2. Trivial aortic valve regurgitation. Mildly thickenedmitral valve. Trivial mitral valve regurgitation. Normal pulmonary valve.Normal pulmonary valve systolic velocities. Trivial pulmonary valveregurgitation. Normal tricuspid valve. Trivial tricuspid valveregurgitation. OTHER ECHO FINDINGS:Enlarged inferior vena cava size with normalinspiratory collapse (>50%). Lipomatous atrial septum. Normal sinus ofValsalva diameter of 44 mm. Normal mid ascending aorta diameter of 43 mm.No abdominal aortic aneurysm. Normal abdominal aorta Doppler flow pattern.No atrial level shunt by color flow imaging. No intracardiac mass orthrombus, but the left atrial appendage cannot be visualized adequatelywith transthoracic echo to exclude thrombus in this location. Nopericardial effusion. Prominent Chiari network in the right atrium bestseen on image #130, 131. For the complete report, see the Order-Level Documents. Marcia Dewitt APRN C.N.P., D.N.P. CV ECHO PROCEDURES from Last 3 Months Advance Directives For more information, please contact: [phone] Documents on File Type Date Recorded Patient Awning Maker And Installer Expl anation Advance Directives 12/28/2023 8:11 AM Denice Christianson HCPOA/ADVOCATE/AGENT/R EPRESENTATIVE/SURROGAT E Healthcare Agents on File Name Relationship Healthcare Agent Relationshi p Communication Denice Burr Spouse Health Care Agent Tanya Burr Daughter Health Care Agent [email or web address] Clyde Christianson Health Care Agent Care Teams Power Transmission Engineer Relationship Specialty Start Date End Date Elsewhere, Pcp PCP - General Crm Marketing Manager 12/26/23
--- OUTSIDE RECORDS SUMMARY | 2024-04-02 13:41 | XMS_ITS | Encounter Summary ---
[facility] Address [address] [address] Care Team Providers Care Appellate Court Judge Name Role Phone Robert Burton MD Primary Care Provider [phone]- [phone] Reason for Visit * Auth/Cert (Routine) Specialty Diagnoses / Procedures Referred By Conthesham t Referred To Contact Diagnoses Chronic pain of right knee Procedures Knee Arthroscopic Medial and Lateral Meniscectomy Referral ID Status Reason Start Date Expiration Date Visits Re quested Visits Authorized [id number] 1 1 Encounter Details Date Type Department Care Team (Late st Contact Info) Description 08/23/2023 Hospital Encounter [facility] [address] [place], [place] [id number] Josiah Hameed MD [address] [place] [address] Social History Tobacco Use Types Packs/Day Years Used Date Smoking Tobacco: Never Smokeless Tobacco: Never Alcohol Use Standard Drinks/Week Comments Yes 6 (1 standard drink = 0.6 oz pur e alcohol) Sex and Gender Information Value Date Recorded Sex Assigned at Not on file Gender Identity Not on file Sexual Orientation Not on file documented as of this encounter Plan of Treatment Not on file documented as of this encounter Visit Diagnoses Diagnosis Chronic pain of right knee- Primary documented in this encounter Admitting Diagnoses Diagnosis Chronic pain of right knee documented in this encounter Care Teams Appellate Court Judge Relationship Specialty Start Date End Date Robert Burton MD [address] [place] [address] PCP - General 04/18/23 documented as of this encounter
--- OUTSIDE RECORDS SUMMARY | 2024-04-02 13:41 | XMS_ITS | Encounter Summary ---
Author Organization [facility] Address [address] [place] [address] Care Team Providers Care Vamp Creaser Name Role Phone Elsewhere, Pcp Primary Care Provider Unavailabl e Encounter Details Date Type Department Care Team (Late st Contact Info) Description 02/14/2024 Orders Only Division of Nephrology and Hypertension in [place], [place] [address] [place] [address] Cirilo Jay Jr., D.O. [address] [place] [address] Social History Tobacco Use Types Packs/Day Years Used Date Smoking Tobacco: Never Passive Smoke Exposure: Never Smokeless Tobacco: Never Alcohol Use Standard Drinks/Week Comments Not Currently 0 (1 standard drink = 0.6 oz pur e alcohol) [facility] Utilities Answer Date Recorded In the past 12 months has e [employer], gas, oil, or water [employer] threatened to shut off services in your [...] the money to buy more. Never true 03/21/20 24 Within the past 12 months, t [...] PM CDT documented as of this encounter Plan of Treatment Upcoming Encounters Date Type Department Care Team (Late st Contact Info) Description 08/25/2024 1:30 PM MAT TESTER Office Visit Department of Dermatology in [address] [phone] Gloria Rodrigez M.D. [address] [place] [address] Discharge Disposition: Home or Self Care documented as of this encounter Visit Diagnoses Not on filedocumented in this encounter Care Teams Vamp Creaser Relationship Specialty Start Date End Date Elsewhere, Pcp PCP - General Electrician Substation Supervisor 12/26/23 documented as of this encounter
--- OUTSIDE RECORDS SUMMARY | 2024-04-02 13:41 | XMS_ITS | Referral Summary ---
Author Organization [facility] Address [address] [place] [address] Care Team Providers Care Parking Lot Attendant Name Role Phone Elsewhere, Pcp Primary Care Provider Unavailabl e Source Comments Patient records contain information from all sites at [facility]. For routine questions regarding patient records, call [phone] during business hours, M-F 8:00 AM - 5:00 PM Central Time. Record requests for emergency care only can be directed to [phone] at any time.[facility] Encounters Date Type Department Care Team Description 02/27/2024 11:30 AM CDT Clinical Communication Virtual Review in [place], [place] [address] [place] [address] 02/27/2024 4:00 PM CDT Comprehensive Visit Division of Gastroenterology in [place], [place] [address] [place] [phone] Anup Rob M.D. Cancer Renal Cell Carcinoma Personal History 02/14/2024 Orders Only Division of Nephrology and Hypertension in [place], [place] [address] [place] [phone] Cirilo Jay Jr. D.O. 02/13/2024 8:30 AM CDT External Outreach Division of Nephrology and Hypertension in [place], [place] [address] [place] [phone] Cirilo Jay Jr. D.O. Cancer Renal Cell Carcinoma Personal History (Primary Dx); Solitary Kidney Acquired; Benign Prostatic Hyperplasia Without Obstruction 02/11/2024 1:33 PM CDT - 02/11/2024 2:05 PM CDT Hospital Encounter Department of Laboratory Medicine and Pathology, [place], [place] [address] [place] [phone] Cirilo Jay Jr., D.O. Cancer Renal Cell Carcinoma Personal History; Hyperlipidemia Mixed; Solitary Kidney Acquired; Benign Prostatic Hyperplasia Without Obstruction; Gastroesophageal Reflux Disease Without Esophagitis Discharge Disposition: Home or Self Care 02/11/2024 1:33 PM CDT - 02/11/2024 2:05 PM CDT Hospital Encounter Department of Laboratory Medicine and Pathology, [place], [place] [address] [place] [phone] Cirilo Jay Jr., D.O. Cancer Renal Cell Carcinoma Personal History; Hyperlipidemia Mixed; Solitary Kidney Acquired; Benign Prostatic Hyperplasia Without Obstruction; Gastroesophageal Reflux Disease Without Esophagitis Discharge Disposition: Home or Self Care 02/11/2024 2:06 PM CDT - 02/11/2024 2:46 PM CDT [facility] [place] [place] [address] [place] [phone] Cirilo Jay Jr., D.OSarah Cancer Renal Cell Carcinoma Personal History; Hyperlipidemia Mixed; Solitary Kidney Acquired; Benign Prostatic Hyperplasia Without Obstruction; Gastroesophageal Reflux Disease Without Esophagitis Discharge Disposition: Home or Self Care 02/11/2024 2:47 PM CDT - 02/11/2024 11:59 PM CDT Hospital Encounter Department of Radiology, [facility] in [place], [place] [address] [place] [phone] Cirilo Jay Jr., D.O. Cancer Renal Cell Carcinoma Personal History; Hyperlipidemia Mixed; Solitary Kidney Acquired; Benign Prostatic Hyperplasia Without Obstruction; Gastroesophageal Reflux Disease Without Esophagitis Discharge Disposition: Home or Self Care 01/04/2024 11:55 AM CDT - 01/04/2024 11:59 PM CDT Hospital Encounter Department of Cardiovascular Diseases [place], [place] [address] [place] [phone] Marcia Dewitt, DIRECT CARE SPECIALIST, C.N.PSarah, Karen. [facility] Discharge Disposition: Home or Self Care from Last 3 Months Allergies No known active allergies Medications Medication [...] Cancer Renal Cell Carcinoma Personal History 12/2022 Social History Tobacco Use Types Packs/Day Years Used Date Smoking Tobacco: Never Passive Smoke Exposure: Never Smokeless Tobacco: Never Tobacco Cessation:Counseling Given: Not Answered Alcohol Use Standard Drinks/Week Comments Not Currently 0 (1 standard drink = 0.6 oz pur e alcohol) [facility] Utilities Answer Date Recorded In the past 12 months has th e [employer], gas, oil, or water [employer] threatened to shut off services in your [...] st Contact Info) Description 08/25/2024 1:30 PM BUILDING REPAIR MAINTENANCE SUPERVISOR Office Visit Department of Dermatology in [address] [phone] Gloria Rodrigez M.D. [address] [place] [phone] Discharge Disposition: Home or Self Care Procedures Procedure Name Priority Date/Time Associated Diagnosis [...] prominent mesenteric lymph nodes. Hanh Chaudhary Jr.O. IMG CT PROCE DURES * Creatinine, POCT (02/11/2024 3:26 PM CDT) Only the most recent of2 resultswithin the time period is included. Creatinine, POCT, B 1.4 0.7 - 1.4 mg/dL 02/11/2024 3:29 PM CDT PCDT Comment: ----ADDITIONAL INFORMATION---- Performed at the Point of Care Blood 02/11/2024 3:26 PM CDT 02/11/2024 3:29 PM CDT Unknown Provider LAB POCT ORDERABLES - DEVICE [facility] [address] [place] [address], [facility] PCDT [facility] [address] [place] [address] * DX Chest AP or PA and [...] degenerative changes of the skeleton. Chest otherwisenegative. Hanh Chaudhary Jr.O. IMG DIAGNOST IC IMAGING PROCEDURES * Dipstick, [...] Chaudhary Jr.O. LAB URINE OR DERABLES [facility] [address] [place] [address], [place] DTL [facility] [address] [place] [address] * Microscopic Automated (02/11/2024 2:01 PM CDT) Microscopy Normal 02/11/2024 3:13 PM CDT DTL RBC None Seen <3 /hpf 02/11/2024 3:13 PM CDT DTL WBC None Seen /hpf 02/11/2024 3:13 PM CDT DTL Comment: ----REFERENCE VALUE---- <4 ??(Males) <11 (Females) Urine 02/11/2024 2:01 PM CDT 02/11/2024 2:14 PM CDT Cirilo Jay Jr., D.O. LAB URINE OR DERABLES Performing Organization Address [facility]/[place] [address] * pH, Urine (02/11/2024 2:01 PM CDT) pH, U 6.0 4.5 - 8.0 02/11/2024 3:0 5 PM CDT DT Urine 02/11/2024 2:01 PM CDT 02/11/2024 2:14 PM CDT Kali Chaudhary Jr..O. LAB URINE OR DERABLES Performing Organization Address [facility] [place] [address] * Albumin, Random, Urine (02/11/2024 2:01 PM CDT) Albumin, Random, U 5.8 mg/L 2023 7:33 AM CDT DT Comment: ----ADDITIONAL INFORMATION---- This test has been modified from the account services coordinator's instructions. Its performance characteristics were determined by [facility] in a manner consistent with CLIA requirements. This test has not been cleared or approved by the U.S. Food and Drug Administration. Creatinine 86 mg/dL 02/11/2024 3:07 PM CDT DTL Albumin/Creatinine Ratio 7 <17 mg/g 02/12/2024 7:33 AM CDT DTL Urine (Urine, Voided) 02/11/2024 2:01 PM CDT 02/11/2024 2:31 PM CDT Cirilo Jay Jr., D.O. LAB URINE OR DERABLES Performing Organization Address City/[facility] Co de Phone Number [facility] [address] [place] [address], [facility] [address] [place] [address] * Osmolality, Urine (02/11/2024 2:01 PM CDT) Osmolality, U 632 150 - 1150 mOsm/kg 02/11/2024 3:05 PM CDT DTL Urine 02/11/2024 2:01 PM CDT 02/11/2024 2:14 PM CDT Cirilo Jay Jr., D.O. LAB URINE OR DERABLES Performing Organization Address [facility] Co de Phone Number [facility] [address] [place] [address], [address] [address] * Urinalysis, with Microscopic: Urine, Voided (02/11/2024 [...] PM CDT 02/11/2024 2:14 PM CDT Hanh hCaudhary Jr.OSarah LAB URINE OR DERABLES [facility] [address] [place] [address], [facility] DTL [facility] [address] [place] [address] * Lipid Panel (02/11/2024 1:57 PM CDT) [...] Jay Jr., D.O. LAB BLOOD AD D-ON [facility] [address] [place] [address], [facility] DTL [facility] [address] [place] [address] * (ABNORMAL) Renal Function Panel (02/11/2024 1:57 [...] Jay Jr., D.O. LAB BLOOD AD D-ON [facility] [address] [place] [address], [facility] DTL [facility] [address] [place] [address] * (ABNORMAL) CBC with Differential, Blood (02/11/2024 [...] 02/11/2024 2:16 PM CDT Cirilo Jay Jr., D.O. LAB BLOOD AD D-ON [facility] [address] [place] [address], [facility] DTL [facility] [address] [place] [address] * (TTE) 2D ECHO DOPPLER COLOR (01/04/2024 [...] aortic stenosis. 9. There are no previous [facility] echocardiograms available for comparison. Procedure Note Maame Mccabe M.B.BSarahS., Ph.D. - 01/04/2024 For the complete report, [...] aortic stenosis. 9. There are no previous [facility] echocardiograms available forcomparison. Findings LEFT VENTRICLE:Normal left [...] see the Order-Level Documents. Marcia Dewitt APRN C.N.Tavo., D.N.P. CV ECHO PROCEDURES from Last 3 Months Advance Directives For more information, please contact: [phone] Documents on File Type Date Recorded Patient Rivet Spinner Expl anation Advance Directives 12/28/2023 8:11 AM Denice Christianson HCPOA/ADVOCATE/AGENT/R EPRESENTATIVE/SURROGAT E Healthcare Agents on File Name Relationship Healthcare Agent [facility] p Communication Denice Burr Spouse Health Care Agent Tanya Burr Sherri Health Care Agent [email or web address] Clyde Christianson Health Care Agent Care Teams Parking Lot Attendant Relationship Specialty Start Date End Date Elsewhere, Pcp PCP - General Postal Service Mail Processor 12/26/23
--- OUTSIDE RECORDS SUMMARY | 2024-04-02 13:41 | XMS_ITS | Encounter Summary ---
Author Organization [facility] Address [address] [place] [address] Care Team Providers Care Director Of Special Events Name Role Phone Elsewhere, Pcp Primary Care Provider Unavailabl e Encounter Details Date Type Department Care Team (Latest Contact Info) Description 02/27/2024 11:30 AM CDT Clinical Communication Virtual Review in [place], [place] [address] [place] [address] Social History Tobacco Use Types Packs/Day Years Used Date Smoking Tobacco: Never Passive Smoke Exposure: Never Smokeless Tobacco: Never Alcohol Use Standard Drinks/Week Comments Not Currently 0 (1 standard drink = 0.6 oz pur e alcohol) [facility] Utilities Answer Date Recorded In the past 12 months has e electric, gas, oil, or water company threatened to shut off services in your [...] st Contact Info) Description 08/25/2024 1:30 PM FIELD SALES ASSOCIATE Office Visit Department of Dermatology in [address] [phone] Gloria Rodrigez M.D. [address] [place] [phone] Discharge Disposition: Home or Self Care documented as of this encounter Visit Diagnoses Not on filedocumented in this encounter Care Teams Director Of Special Events Relationship Specialty Start Date End Date Elsewhere, Pcp PCP - General Domestic Violence Advocate 12/26/23 documented as of this encounter
--- OUTSIDE RECORDS SUMMARY | 2024-04-02 13:41 | XMS_ITS | Clinical Summary ---
Author Organization [facility] Address [address] [place] [address] Care Team Providers Care Tower Equipment Installer Name Role Phone Robert Burton MD Primary Care Provider +1- [phone] Source Comments You are receiving this document as you are listed as the primary care provider,follow-up provider, or the patient has been referred to you for consultation.This is in compliance with the Medicare and[facility] EHR Incentive Program,which states Providers who transition their patient to another setting of careor provider of care or refers their patient to another provider of care shouldprovide summary care record for each transition of care or referral. [employer] Allergies Active Allergy Reactions Criticality Noted Date Comments Review Food Intolerance 11/11/2007 PN: LW FI1: nka Medications Medication Sig Dispensed Refills Start Date End Date Status unknown medication Indications: PN: 06/28/2009 Active simvastatin (AKA ZOCOR) 20 MG tablet Take 1 tablet by mouth every evening. LW Comment:Needs Appt within 30 days LW Addl Instr:Indicated for: High Cholesterol 30 12/30/2009 Active tamsulosin (FLOMAX) 0.4 MG CAPS capsule Take 1 Capsule (0.4 mg) by mouth daily. 04/10/2023 Active cycloSPORINE (RESTASIS) 0.05 % eye drop emulsion Place 1 Drop into eye(s). Active Active Problems Problem Noted Date Diagnosed Date Chronic pain of right knee 05/28/2023 Hematuria 07/13/2022 Overview: Last Assessment & Plan: Hematuria discussed. Recent UC note and labs reviewed. Labs today. Further eval with urology and referral placed. Seek emergent for any severe abd/flank pain. Dry eye syndrome of bilateral lacrimal glands Left knee pain 05/22/2022 Overview: Added automatically from request for surgery [id number] Actinic keratosis 11/11/2007 Dyschromia 11/11/2007 Overview: Lentigo Hyperlipidemia 02/07/2006 Esophageal reflux 02/07/2006 Overview: LW Modifier: chronic belching better with prilosec ; Gastroesophageal Reflux Disease Immunizations Name Administration Dates Next Due DT Ped 11/15/1979 Flu Vac Preserv Free (3+yrs) 06/13/2007,08/19/20 04 PPSV23 (Pneumovax) 11/11/2007 Td 09/23/1999 Zoster (Zostavax) 11/11/2007 Social History Tobacco Use Types Packs/Day Years Used Date Smoking Tobacco: Never Smokeless Tobacco: Never Alcohol Use Standard Drinks/Week Comments Yes 6 (1 standard drink = 0.6 oz pur e alcohol) Sex and Gender Information Value Date Recorded Sex Assigned at Not on file Gender Identity Not on file Sexual Orientation Not on file Last Filed Vital Signs Vital Sign Reading Time Taken Comments Blood Pressure 154/88 05/31/2023 10:31 AM CDT Pulse 55 05/31/2023 10:31 AM CDT Temperature 36 ??C (96.8 ??F) 05/31/2023 9:30 AM CDT Respiratory Rate 16 05/31/2023 10:31 AM CDT Oxygen Saturation 100% 05/31/2023 10:31 AM CDT Inhaled Oxygen Concentration - - Weight 102.1 kg (225 lb) 05/28/2023 10:13 AM CDT Height 180.3 cm (5' 11) 05/28/2023 10:13 AM CDT Body Mass Index 31.38 05/28/2023 10:13 AM CDT Plan of Treatment Health Maintenance Due Date Last Done Comments Medicare Annual Wellness Visit 1940 COVID-19 Vaccine ( season) 2023 07/12/2021, 10/25/2020, 10/01/2020 Influenza (#1) 2024 07/10/2022, 1001/2021, 05/27/2020, Additional history exists DTaP/Tdap/Td (6 - Tdap) 04/07/2031 04/07/20 21, 02/10/2011, 09/10/2010, Additional history exists Pneumococcal 65+ Yrs Completed 03/27/2016, 06/10/2015, 05/24/2015, Additional history exists Zoster/Shingles Completed 03/31/2020, 02/08, 12/25/2018, Additional history exists HepA Aged Out No longer eligi ble based on patient's age to complete this topic HepB Aged Out No longer eligi ble based on patient's age to complete this topic Hib Aged Out No longer eligi ble based on patient's age to complete this topic IPV (Polio) Aged Out No longer eligi ble based on patient's age to complete this topic MCV4 Aged Out No longer eligi ble based on patient's age to complete this topic Advance Directives Documents on File Type Date Recorded Patient Acid Concentrator Expl anation Advance Directive/Living Will/Durable Power of Attny on file/POLST PN * Full Code (Latest Code Status on File) Date Activated Date Inactivated Comments 04/21/2021 3:01 PM 04/22/2021 2:00 PM Care Teams Tower Equipment Installer Relationship Specialty Start Date End Date Robert Burton MD [address] [place] [address] PCP - General 04/18/23
--- OUTSIDE RECORDS SUMMARY | 2024-04-02 13:41 | XMS_ITS | Encounter Summary ---
Author Organization [facility] Address [address] [place] [address] Care Team Providers Care Mobile Web Application Developer Name Role Phone Elsewhere, Pcp Primary Care Provider Unavailabl e Encounter Details Date Type Department Care Team (Latest Contact Info) Description 02/11/2024 1:33 PM CDT - 02/11/2024 2:05 PM CDT Hospital Encounter Department of Laboratory Medicine and Pathology, [facility] in [place], [place] [address] [place] [address] Cirilo Jay Jr., D.O. [address] [place] [address] Cancer Renal Cell Carcinoma Personal History; Hyperlipidemia Mixed; Solitary Kidney Acquired; Benign Prostatic Hyperplasia Without Obstruction; Gastroesophageal Reflux Disease Without Esophagitis Discharge Disposition: Home or Self Care Social History Tobacco Use Types Packs/Day Years Used Date Smoking Tobacco: Never Passive Smoke Exposure: Never Smokeless Tobacco: Never Alcohol Use Standard Drinks/Week Comments Not Currently 0 (1 standard drink = 0.6 oz pur e alcohol) [facility] Utilities Answer Date Recorded In the past 12 months has [employer], gas, oil, or water [employer] threatened to shut off services in your [...] st Contact Info) Description 08/25/2024 1:30 PM QUALITY INTERNSHIP Office Visit Department of Dermatology in [address] [address] Gloria Rodrigez M.D. [address] [place] [address] Discharge Disposition: Home or Self Care documented as of this encounter Procedures Procedure Name Priority Date/Time Associated Diagnosis Comments LIPID PANEL, S Routine 02/11/2024 1:57 PM [...] Esophagitis documented in this encounter Results * (ABNORMAL) Renal Function Panel (02/11/2024 1:57 [...] Jay Jr., D.O. LAB BLOOD AD D-ON [facility] [address] [place] [address], [facility] [address] [place] [address] * Lipid Panel (02/11/2024 1:57 PM CDT) [...] Jay Jr., D.O. LAB BLOOD AD D-ON [facility] [address] [place] [address], [facility] [address] [place] [address] * (ABNORMAL) CBC with Differential, Blood (02/11/2024 [...] CDT 02/11/2024 2:16 PM CDT Cirilo Jay Jr. DSarahOSarah LAB BLOOD AD D-ON [facility] [address] [place] [address], [facility] DTL [facility] [address] [place] [address] DHPM [facility] [address] [place] [address] documented in this encounter Visit Diagnoses Diagnosis Cancer Renal Cell Carcinoma Personal History Hyperlipidemia Mixed Solitary Kidney Acquired Benign Prostatic Hyperplasia Without Obstruction Gastroesophageal Reflux Disease Without Esophagitis documented in this encounter Care Teams Mobile Web Application Developer Relationship Specialty Start Date End Date Elsewhere, Pcp PCP - General Miner Placer 12/26/23 documented as of this encounter
--- OUTSIDE RECORDS SUMMARY | 2024-04-02 13:42 | XMS_ITS | Encounter Summary ---
Author Organization [facility] Address [address] [place] [address] Care Team Providers Care Decorating Kiln Operator Name Role Phone Elsewhere, Pcp Primary Care Provider Unavailabl e Reason for Visit * Reason Onset Date Comments Pre-visit Intake 12/26/2023 Encounter Details Date Type Department Care Team (Latest Contact Info) Description 12/26/2023 1:45 PM CDT Clinical Communication Virtual Review in [place], [place] [address] [place] [address] Pre-visit Intake Social History Tobacco Use Types Packs/Day Years Used Date Smoking Tobacco: Never Passive Smoke Exposure: Never Smokeless Tobacco: Never Alcohol Use Standard Drinks/Week Comments Not Currently 0 (1 standard drink = 0.6 oz pur e alcohol) [facility] Utilities Answer Date Recorded In the past 12 months has [facility] [employer], gas, oil, or water [employer] threatened to shut off services in your [...] st Contact Info) Description 08/25/2024 1:30 PM MARKETING REP Office Visit Department of Dermatology in [address] [phone] Gloria Rodrigez M.D. [address] [place] [phone] Discharge Disposition: Home or Self Care documented as of this encounter Visit Diagnoses Not on filedocumented in this encounter Care Teams Decorating Kiln Operator Relationship Specialty Start Date End Date Elsewhere, Pcp PCP - General Panel Sewer 12/26/23 documented as of this encounter
--- OUTSIDE RECORDS SUMMARY | 2024-04-02 13:42 | XMS_ITS | Encounter Summary ---
Author Organization [facility] Address [address] [place] [address] Care Team Providers Care Academic Hospitalist Name Role Phone Elsewhere, Pcp Primary Care Provider Unavailabl e Encounter Details Date Type Department Care Team (Latest Contact Info) Description 12/27/2023 11:37 AM CDT - 12/27/2023 11:59 PM CDT Hospital Encounter Department of Laboratory Medicine and Pathology, [facility] in [place], [place] [address] [place] [address] Wesley Quach M.D. [address] [place] [address] Coronary Artery Disease Without Angina Pectoris Discharge Disposition: Home or Self Care Social History Tobacco Use Types Packs/Day Years Used Date Smoking Tobacco: Never Passive Smoke Exposure: Never Smokeless Tobacco: Never Alcohol Use Standard Drinks/Week Comments Not Currently 0 (1 standard drink = 0.6 oz pur e alcohol) [facility] Utilities Answer Date Recorded In the past 12 months has [employer], gas, oil, or water company threatened to [...] st Contact Info) Description 08/25/2024 1:30 PM PEARL PELLER Office Visit Department of Dermatology in [address] [phone] Gloria Rodrigez M.D. 200 [place] [address] Discharge Disposition: Home or Self Care documented as of this encounter Procedures Procedure Name Priority Date/Time Associated Diagnosis Comments LIPID PANEL, S Routine 12/27/2023 11:44 AM CDT Coronary Artery Disease Without Angina Pectoris BASIC METABOLIC PANEL, S/P Routine 12/27/2023 11:44 AM CDT Coronary Artery Disease Without Angina Pectoris CBC WITH DIFFERENTIAL, B Routine 12/27/2023 11:43 AM CDT Coronary Artery Disease Without Angina Pectoris documented in this encounter Results * Lipid Panel (12/27/2023 11:44 AM CDT) Triglycerides 59 mg/dL 12/27/2023 12:33 PM CDT DTL Comment: ----REFERENCE VALUE---- Normal: <150 mg/dL Borderline High: 150-199 mg/dL High: 200-499 mg/dL Very High: > or =500 mg/dL Cholesterol, Total 145 mg/dL 2023 12:33 PM CDT DTL Comment: ----REFERENCE VALUE---- Desirable: < 200 mg/dL Borderline High: 200 - 239 mg/dL High: > or = 240 mg/dL Cholesterol, LDL, Calculated 78 mg/dL 12/27/2023 12:33 PM CDT DTL Comment: ----REFERENCE VALUE---- Desirable: <100 mg/dL Above Desirable: 100-129 mg/dL Borderline High: 130-159 mg/dL High: 160-189 mg/dL Very High: >=190 mg/dL ----ADDITIONAL INFORMATION---- LDL cholesterol calculated using the Grajeda/NIH equation. Cholesterol, HDL, S 55 >=40 mg/dL 12/27/2023 12:33 PM CDT DTL Cholesterol, Non-HDL, Calculated 90 mg/dL 12/27/2023 12:33 PM CDT DTL Comment: ----REFERENCE VALUE---- Desirable: <130 mg/dL Above Desirable: 130-159 mg/dL Borderline High: 160-189 mg/dL High: 190-219 mg/dL Very High: > or =220 mg/dL Fasting (8 HR or more) Yes 12/27/2023 12:15 PM CDT DTL Blood (Blood, Venous) 12/27/2023 11:44 AM CDT 12/27/2023 12:15 PM CDT Wesley Quach M.D. LAB BLOOD ADD-ON [facility] [address] [place] [address], [facility] [address] [place] [address] * (ABNORMAL) Basic Metabolic Panel (12/27/2023 11:44 AM CDT) Potassium, S 4.3 3.6 - 5.2 mmol/L 12/27/2023 12:33 PM CDT DTL Sodium, S 140 135 - 145 mmol/L 12/27/2023 12:33 PM CDT DTL Chloride, S 105 98 - 107 mmol/L 12/27/2023 12:33 PM CDT DTL Bicarbonate, S 28 22 - 29 mmol/L 12/27/2023 12:33 PM CDT DTL Anion Gap 7 7 - 15 12/27/2023 12:33 PM CDT DTL BUN (Blood Urea Nitrogen), S 20 8 - 24 mg/dL 12/27/2023 12:33 PM CDT DTL Creatinine 1.37(H) 0.74 - 1.35 mg/dL 12/27/2023 12:33 PM CDT DTL Estimated GFR (eGFR) 52(L) >=60 mL/min/BSA 12/27/2023 12:33 PM CDT DTL Comment: Estimated GFR calculated using the 2020 CKD_EPI creatinine equation. Calcium, Total, S 9.2 8.8 - 10.2 mg/dL 12/27/2023 12:33 PM CDT DTL Glucose, S 94 70 - 140 mg/dL 12/27/2023 12:33 PM CDT DTL Blood (Blood, Venous) 12/27/2023 11:44 AM CDT 12/27/2023 12:15 PM CDT Wesley Quach M.D. LAB BLOOD ADD-ON [facility] [address] [place] [address], [facility] DTL [facility] [address] [place] [address] * (ABNORMAL) CBC with Differential, Blood (12/27/2023 11:43 AM CDT) Hemoglobin 13.2 13.2 - 16.6 g/dL 12/27/2023 12:18 PM CDT DTL Hematocrit 38.7 38.3 - 48.6 % 12/27/2023 12:18 PM CDT DTL Erythrocytes 4.30(L) 4.35 - 5.65 x10(12)/L 12/27/2023 12:18 PM CDT DTL MCV 90.0 78.2 - 97.9 fL 12/27/2023 12:18 PM CDT DTL RBC Distrib Width 11.9 11.8 - 14.5 % 12/27/2023 12:18 PM CDT DTL Platelet Count 182 135 - 317 x10(9)/L 12/27/2023 12:18 PM CDT DTL Leukocytes 4.2 3.4 - 9.6 x10(9)/L 12/27/2023 12:18 PM CDT DTL Neutrophils 2.55 1.56 - 6.45 x10(9)/L 12/27/2023 12:18 PM CDT DHPM Lymphocytes 1.18 0.95 - 3.07 x10(9)/L 12/27/2023 12:18 PM CDT DTL Monocytes 0.36 0.26 - 0.81 x10(9)/L 12/27/2023 12:18 PM CDT DTL Eosinophils 0.07 0.03 - 0.48 x10(9)/L 12/27/2023 12:18 PM CDT DTL Basophils 0.04 0.01 - 0.08 x10(9)/L 12/27/2023 12:18 PM CDT DTL Blood (Blood, Venous) 12/27/2023 11:43 AM CDT 12/27/2023 12:10 PM CDT Wesley Quach M.D. LAB BLOOD ADD-ON [facility] [address] [place] [address], [facility] DTL [facility] [address] [place] [address] [facility] [address] [place] [address] documented in this encounter Visit Diagnoses Diagnosis Coronary Artery Disease Without Angina Pectoris documented in this encounter Care Teams Academic Hospitalist Relationship Specialty Start Date End Date Elsewhere, Pcp PCP - General Food Quality Tester 12/26/23 documented as of this encounter
--- OUTSIDE RECORDS SUMMARY | 2024-04-02 13:42 | XMS_ITS | Encounter Summary ---
Author Organization [facility] Address [address] [place] [address] Care Team Providers Care Surveillance Sensor Officer Name Role Phone Elsewhere, Pcp Primary Care Provider Unavailabl e Reason for Visit * Reason Onset Date Comments Pre-visit Testing Orders 12/11/2023 Encounter Details Date Type Department Care Team (Latest Contact Info) Description 12/11/2023 Clinical Communication Department of Cardiovascular Medicine in [place], [place] [address] [place] [address] Product Marketing AnalystSg M.D. Pre-visit Testing Orders Social History Tobacco Use Types Packs/Day Years Used Date Smoking Tobacco: Never Smokeless Tobacco: Never [facility] Utilities Answer Date Recorded In the past [...] st Contact Info) Description 08/25/2024 1:30 PM SCRIPT COORDINATOR Office Visit Department of Dermatology in [address] [phone] Gloria Rodrigez M.D. [address] [place] [phone] Discharge Disposition: Home or Self Care documented as of this encounter Visit Diagnoses Not on filedocumented in this encounter Care Teams Surveillance Sensor Officer Relationship Specialty Start Date End Date Elsewhere, Pcp PCP - General Retail Sales Vitamin Consultant 12/26/23 documented as of this encounter
--- OUTSIDE RECORDS SUMMARY | 2024-04-02 13:42 | XMS_ITS | Encounter Summary ---
Author Organization [facility] Address [address] [place] [address] Care Team Providers Care Valet Attendant Name Role Phone Elsewhere, Pcp Primary Care Provider Unavailabl e Reason for Referral * Outpatient (Routine) - Closed Specialty Diagnoses / Procedures Referred By Michele t Referred To Contact Diagnoses [facility] Procedures Echo Transthoracic (TTE) Marcia Dewitt APRN, C.N.P., D.N.P. [address] [place] [address] [facility] Referral ID Status Reason Start Date Expiration Date Visits Re quested Visits Authorized [id number] Closed 12/28/2023 12/27/2024 1 1 Reason for Visit * Outpatient (Routine) - Closed Specialty Diagnoses / Procedures Referred By Michele rivera Referred To Contact Diagnoses [facility] Procedures Echo Transthoracic (TTE) Marcia Dewitt APRN, C.N.P., D.N.P. [address] [place] [phone] [facility] Referral ID Status Reason Start Date Expiration Date Visits Re quested Visits Authorized [id number] Closed 12/28/2023 12/27/2024 1 1 Encounter Details Date Type Department Care Team (Latest Contact Info) Description 01/04/2024 11:55 AM CDT - 01/04/2024 11:59 PM CDT Hospital Encounter Department of Cardiovascular Diseases in [place], [place] [address] [place] [address] Marcia Dewitt, GEO, C.N.P., D.N.P. [address] [place] [address] [facility] Discharge Disposition: Home or Self Care Social History Tobacco Use Types Packs/Day Years Used Date Smoking Tobacco: Never Passive Smoke Exposure: Never Smokeless Tobacco: Never Alcohol Use Standard Drinks/Week Comments Not Currently 0 (1 standard drink = 0.6 oz pur e alcohol) [facility] Utilities Answer Date Recorded In the past 12 months has th e [employer], gas, oil, or water [employer] threatened to shut off services in your [...] st Contact Info) Description 08/25/2024 1:30 PM MEASUREMENT TECHNICIAN Office Visit Department of Dermatology in [address] [phone] Gloria Rodrigez M.D. [address] [place] [phone] Discharge Disposition: Home or Self Care documented as of this encounter Procedures Procedure Name Priority Date/Time Associated Diagnosis Comments (TTE) 2D ECHO DOPPLER COLOR Routine 01/04/2024 1:36 PM CDT [facility] documented in this encounter Results * (TTE) 2D ECHO DOPPLER COLOR (01/04/2024 [...] 9. There are no previous [facility] echocardiograms available for comparison. Procedure Note [...] 9. There are no previous [facility] echocardiograms available forcomparison. Findings LEFT VENTRICLE:Normal [...] report, see the Order-Level Documents. Marcia Dewitt APRN, C.N.P., D.N.P. CV ECHO PROCEDURES documented in this encounter Visit Diagnoses Diagnosis [facility] documented in this encounter Care Teams Valet Attendant Relationship Specialty Start Date End Date Elsewhere, Pcp PCP - General Arbor Press Operator 12/26/23 documented as of this encounter
--- OUTSIDE RECORDS SUMMARY | 2024-04-02 13:42 | XMS_ITS | Encounter Summary ---
Author Organization [facility] Address [address] [place] [address] Care Team Providers Care Gore Maker Name Role Phone Elsewhere, Pcp Primary Care Provider Unavailabl e Reason for Visit * Reason Onset Date Comments Pre-visit Testing Orders 11/21/2023 Encounter Details Date Type Department Care Team (Latest Contact Info) Description 11/21/2023 Clinical Communication Division of Nephrology and Hypertension in [place], [place] [address] [place] [address] Cirilo Jay Jr., D.O. [address] [place] [address] Pre-visit Testing Orders Social History Tobacco Use Types Packs/Day Years Used Date Smoking Tobacco: Never Smokeless Tobacco: Never [employer] Utilities Answer Date Recorded In the past 12 months has e [employer], gas, oil, or water [employer] threatened to shut off services in your [...] st Contact Info) Description 08/25/2024 1:30 PM DIRECTOR OF RETAIL Office Visit Department of Dermatology in [address] [phone] Gloria Rodrigez M.D. [address] [place] [address] Discharge Disposition: Home or Self Care documented as of this encounter Visit Diagnoses Not on filedocumented in this encounter Care Teams Gore Maker Relationship Specialty Start Date End Date Elsewhere, Pcp PCP - General Ld Teacher 12/26/23 documented as of this encounter
--- OUTSIDE RECORDS SUMMARY | 2024-04-02 13:42 | XMS_ITS | Encounter Summary ---
Author Organization [facility] Address [address] [place] [address] Care Team Providers Care Marine Insurance Claim Examiner Name Role Phone Elsewhere, Pcp Primary Care Provider Unavailabl e Encounter Details Date Type Department Care Team (Late st Contact Info) Description 12/04/2023 Clinical Communication Department of Urology in [place], [place] [address] [place] [address] Issa Kam M.D. [address] [place] [address] Social History Tobacco Use Types Packs/Day Years Used Date Smoking Tobacco: Never Smokeless Tobacco: Never [facility] Utilities Answer Date Recorded In [...] st Contact Info) Description 08/25/2024 1:30 PM HEAD MVA REACTOR OPERATOR Office Visit Department of Dermatology in [address] [phone] Gloria Rodrigez M.D. [address] [place] [phone] Discharge Disposition: Home or Self Care documented as of this encounter Visit Diagnoses Not on filedocumented in this encounter Care Teams Marine Insurance Claim Examiner Relationship Specialty Start Date End Date Elsewhere, Pcp PCP - General Product Manufacturing Professional 12/26/23 documented as of this encounter
--- OUTSIDE RECORDS SUMMARY | 2024-04-02 13:42 | XMS_ITS | Encounter Summary ---
Author Organization [facility] Address [address] [place] [address] Care Team Providers Care Power Plant Operator Apprentice Name Role Phone Elsewhere, Pcp Primary Care Provider Unavailabl e Reason for Visit * MRI/CAT/PET Scan (Routine) - Closed Specialty Diagnoses / Procedures Referred By Michele rivera Referred To Contact Radiology Diagnoses Cancer Renal Cell Carcinoma Personal History Hyperlipidemia Mixed Solitary Kidney Acquired Benign Prostatic Hyperplasia Without Obstruction Gastroesophageal Reflux Disease Without Esophagitis Procedures CT Abdomen with IV Contrast CT Abdomen without IV Contrast Cirilo aJy Jr., D.O. [address] [place] [address] [facility] Referral ID Status Reason Start Date Expiration Date Visits Re quested Visits Authorized [id number] Closed 08/13/2023 08/12/2024 1 1 Encounter Details Date Type Department Care Team (Latest Contact Info) Description 02/11/2024 2:47 PM CDT - 02/11/2024 11:59 PM CDT Hospital Encounter Department of Radiology, [facility], in [place], [place] [address] [place] [address] Cirilo Jay Jr., D.O. [address] [place] [phone] Cancer Renal Cell Carcinoma Personal History; Hyperlipidemia Mixed; Solitary Kidney Acquired; Benign Prostatic Hyperplasia Without Obstruction; Gastroesophageal Reflux Disease Without Esophagitis Discharge Disposition: Home or Self Care Social History Tobacco Use Types Packs/Day Years Used Date Smoking Tobacco: Never Passive Smoke Exposure: Never Smokeless Tobacco: Never Alcohol Use Standard Drinks/Week Comments Not Currently 0 (1 standard drink = 0.6 oz pur e alcohol) [facility] Utilities Answer Date Recorded In the past 12 months has th e electric, gas, oil, or water company [...] st Contact Info) Description 08/25/2024 1:30 PM A/C TECH Office Visit Department of Dermatology in [address] [phone] Gloria Rodrigez M.D. [address] [place] [address] Discharge Disposition: Home or Self Care Scheduled Orders Name Type Priority Associated Diagnoses Orde r Schedule Creatinine, POCT Point of Care Testing-Docked Device Routine Routine lab collecti on (next collection) for 1 Occurrences starting 02/11/2024 until 02/11/2024 documented as of this encounter Procedures Procedure [...] POCT, B Routine 02/11/2024 3:26 PM CDT documented in this encounter Results * CT Abdomen with IV Contrast [...] orpelvis. 2. Stable prominent mesenteric lymph nodes. Cirilo Jay Jr., D.O. IMG CT PROCE DURES * Creatinine, POCT (02/11/2024 3:26 PM CDT) Creatinine, POCT, B 1.4 0.7 - 1.4 mg/dL 02/11/2024 3:29 PM CDT PCDT Comment: ----ADDITIONAL INFORMATION---- Performed at the Point of Care Blood 02/11/2024 3:26 PM CDT 02/11/2024 3:29 PM CDT Unknown Provider LAB POCT ORDERABLES - DEVICE Performing Organization Address City/[facility]/ZIP Co de Phone Number [facility] PERFORM[facility] [address] [place] [address], [facility] PCDT [facility] [address] [place] [address] * (ABNORMAL) Creatinine, POCT (02/11/2024 3:26 PM CDT) Pathologist [facility] Estimated GFR (eGFR), POCT 50(L) >=60 mL/min/BSA 02/11/2024 3:29 PM CDT [facility] Comment: Estimated GFR calculated using the 2020 CKD_EPI creatinine equation. Blood 02/11/2024 3:26 PM CDT 02/11/2024 3:29 PM CDT Unknown Provider LAB POCT ORDERABLES - DEVICE Performing Organization Address [facility]/ZIP Co de Phone Number [facility] [address] [place] [address], [facility] PCMO [facility] [address] [place] [address] documented in this encounter Visit Diagnoses Diagnosis Cancer Renal Cell Carcinoma Personal History Hyperlipidemia Mixed Solitary Kidney Acquired Benign Prostatic Hyperplasia Without Obstruction Gastroesophageal Reflux Disease Without Esophagitis documented in this encounter Administered Medications Inactive Administered Medications - up to 3 most recent administrations Medication Order MAR Action Action Date Dose Rate Site iohexoL 300 mg iodine/mL solution 1-200 mL (OMNIPAQUE) 1-200 mL, intravenous, Once in imaging, contrast, Starting on Mon 24 at 1519, For 1 dose, Imaging Protocol Orders, Dose per Radiant Medication Guidelines Given 02/11/2024 3:46 PM CDT 140 mL sodium chloride (PF) 0.9 % injection 1-100 mL 1-100 mL, intravenous, Once, On Sun02/11/24 at 1545, For 1 dose, Imaging Protocol Orders, Dose per Radiant Medication Guidelines Given 02/11/2024 3:46 PM CDT 50 mL documented in this encounter Care Teams Power Plant Operator Apprentice Relationship Specialty Start Date End Date Elsewhere, Pcp PCP - General Video Editing Internship 12/26/23 documented as of this encounter
--- OUTSIDE RECORDS SUMMARY | 2024-04-02 13:42 | XMS_ITS | Encounter Summary ---
Author Organization [facility] Address [address] [place] [address] Care Team Providers Care Track Sweeper Name Role Phone Elsewhere, Pcp Primary Care Provider Unavailabl e Encounter Details Date Type Department Care Team (Late st Contact Info) Description 01/01/2024 Abstract [place], [place] [address] [place] [phone] Provider, Historical Social History Tobacco Use Types Packs/Day Years Used Date Smoking Tobacco: Never Passive Smoke Exposure: Never Smokeless Tobacco: Never Alcohol Use Standard Drinks/Week Comments Not Currently 0 (1 standard drink = 0.6 oz pur e alcohol) [facility] Utilities Answer Date Recorded In the [...] st Contact Info) Description 08/25/2024 1:30 PM CURATOR HERBARIUM Office Visit Department of Dermatology in [address] [phone] Gloria Rodrigez M.D. [address] [place] [phone] Discharge Disposition: Home or Self Care documented as of this encounter Visit Diagnoses Not on filedocumented in this encounter Care Teams Track Sweeper Relationship Specialty Start Date End Date Elsewhere, Pcp PCP - General Insolvency Consultant 12/26/23 documented as of this encounter
--- OUTSIDE RECORDS SUMMARY | 2024-04-02 13:42 | XMS_ITS | Encounter Summary ---
Author Organization [facility] Address [address] [place] [address] Care Team Providers Care Newspaper Reporter Name Role Phone Elsewhere, Pcp Primary Care Provider Unavailabl e Reason for Referral * Outpatient (Routine) - Closed Specialty Diagnoses / Procedures Referred By Michele rivera Referred To Contact Diagnoses Murmur Heart Procedures Echo Transthoracic (TTE) Marcia Dewitt APRN, C.N.P., D.N.P. [address] [place] [address] [facility] Referral ID Status Reason Start Date Expiration Date Visits Re quested Visits Authorized [id number] Closed 12/28/2023 12/27/2024 1 1 Reason for Visit * Outpatient (Routine) - Closed Specialty Diagnoses / Procedures Referred By Contact Referred To Contact Cardiovascular Diseases / Cardiovascular Disease Diagnoses Coronary Artery Disease Without Angina Pectoris Wesley Quach M.D. [address] [place] [address] [facility] Referral ID Status Reason Start Date Expiration Date Visits Re quested Visits Authorized [id number] Closed 12/10/2023 06/10/2025 1 1 Encounter Details Date Type Department Care Team (Latest Contact Info) Description 12/28/2023 8:30 AM CDT Comprehensive Visit Department of Cardiovascular Medicine in [place], [place] [address] [place] [phone] Wesley Quach M.D. [address] [place] [phone] Marcia Dewitt APRN, C.N.P., D.N.P. [address] [place] [phone] Abnormal Coronary Calcium Computed Tomography (Primary Dx); Murmur Heart; Hyperlipidemia Social History Tobacco Use Types Packs/Day Years Used Date Smoking Tobacco: Never Passive Smoke Exposure: Never Smokeless Tobacco: Never Tobacco Cessation:Counseling Given: Not Answered Alcohol Use Standard Drinks/Week Comments Not Currently 0 (1 standard drink = 0.6 oz pur e alcohol) [facility] [employer] Answer Date Recorded In the past 12 months has [employer], [employer], oil, or water [employer] threatened to shut off services in your [...] Sign Reading Time Taken Comments Blood Pressure 148/81 12/28/2023 8:21 AM CDT Pulse 57 12/28/2023 8:21 AM CDT Temperature - - Respiratory Rate - - Oxygen Saturation - - Inhaled Oxygen Concentration - - Weight 101 kg (222 lb 10.6 oz) 12/28/2023 8:21 A M CDT Height 179 cm (5' 10.47) 12/28/2023 8:21 AM CDT Body Mass Index 31.52 12/28/2023 8:21 AM CDT documented in this encounter Consult Notes * Marcia Dewitt, GEO, C.N.P., D.N.P. - 12/28/2023 8:30 AM CDT SUBJECTIVE Referring Provider: Wesley Quach M.D. CHIEF COMPLAINT/REASON FOR CONSULT Reason for Consultation: 1. Coronary calcification via non dedicated CT HISTORY OF PRESENT ILLNESS Mr. Burr is a very pleasant 83-year-old male with a past medical history significant for severe coronary artery calcification via non dedicated chest CT, kidney cancer s/p nephrectomy (07/2022), hyperlipidemia, mild ascending aorta dilation. He has never used tobacco products. Cardiac history outlined as follows: 11/2023: Asymptomatic. Urology follow-up for his renal cancer. They wished to repeat a chest CT to assess for metastatic disease. Chest CT: Severe coronary artery calcification. For exercise he is currently walking 30 minutes 5 days a week at a leisurely pace. Denies chest pain, shortness of breath, syncope, edema. He endorses lightheadedness occasionally with bending forward. He does have a family history of valvular disease. His mother had a mitral valve repair and 2 siblings has aortic valve disease with replacement/repair. Current Outpatient Medications Medication Instructions acetaminophen (TYLENOL) 500 mg tablet 1 tablet, oral, Bedtime PRN cycloSPORINE (RESTASIS MULTIDOSE) 0.05 % drops oththalmic suspension 1 drop, ophthalmic, 2 times daily multivitamin tablet 1 tablet, oral, Daily simvastatin (ZOCOR) 40 mg, oral, Daily tamsulosin (FLOMAX) 0.4 mg, oral, Daily REVIEW OF SYSTEMS Pertinent items are noted in HPI; all other review of systems was negative. 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 Peripheral vessel: Carotid arteries are palpable without bruit and normal upstroke. Distal pulses intact. Heart: S1S2 regular rate and rhythm. 2/6 systolic murmur heard best at the bilateral upper sternal border without radiation to the carotids. No gallops, rubs. PMI is nondisplaced. Lungs: Clear to auscultation bilaterally. Extremities: Free of edema and warm to touch. DIAGNOSTICS I have reviewed the patient's current laboratory, imaging, and other diagnostic studies. LABS: Recent Results (from the past 72 hour(s)) CBC with Differential, Blood Collection Time: 12/27/23 11:43 AM Result Value Hemoglobin 13.2 Hematocrit 38.7 Erythrocytes 4.30 (L) MCV 90.0 RBC Distrib Width 11.9 Platelet Count 182 Leukocytes 4.2 Neutrophils 2.55 Lymphocytes 1.18 Monocytes 0.36 Eosinophils 0.07 Basophils 0.04 Basic Metabolic Panel Collection Time: 12/27/23 11:44 AM Result Value Potassium, S 4.3 Sodium, S 140 Chloride, S 105 Bicarbonate, S 28 Anion Gap 7 BUN (Blood Urea Nitrogen), S 20 Creatinine 1.37 (H) Estimated GFR (eGFR) 52 (L) Calcium, Total, S 9.2 Glucose, S 94 Lipid Panel Collection Time: 12/27/23 11:44 AM Result Value Triglycerides 59 Cholesterol, Total 145 Cholesterol, LDL, Calculated 78 Cholesterol, HDL, S 55 Cholesterol, Non-HDL, Calculated 90 Fasting (8 HR or more) Yes ECG: ECG 12 Lead Result Date: 12/27/2023 Sinus bradycardia with 1st degree A-V block Premature atrial complexes Left axis deviation Minimal voltage criteria for LVH, may be normal variant Non-specific intra-ventricular conduction delay No previous ECGs available Reviewed by [facility] ASSESSMENT / PLAN #1 Abnormal Coronary Calcium Computed Tomography #2 Murmur Heart #3 Hyperlipidemia Patient case discussed with Dr. Brannon who agreed with the assessment and plan. The non dedicated chest CT showed severe coronary artery calcification and we discuss the meeting behind this finding. He has been completely asymptomatic from a cardiac standpoint. We do not see a need for additional dedicated cardiac CTs or stress testing at this time, and the primary focus should be ongoing ASCVD risk factor management: LDL: Goal should be <70. He has been maintained on simvastatin over the years. He believes there are lifestyle changes that he can make to help reduce his LDL thus we will not make any changes to his statin today. Blood pressure: Goal should be <130/80. Diabetes, Tobacco: NA Consider adding aspirin 81mg daily for ACS event prevention. We will also obtain a TTE to assess the systolic murmur heard upon today's physical exam. Patient was agreeable to the plan. All questions and concerns addressed. Followup: He can continue following with his PCP for ongoing ASCVD risk factor management. I am more than happy to see him in again in the future if needed. * Kerry Brannon M.D. - 12/28/2023 8:30 AM CDT CAD Clinic Attestation Note: I have seen and evaluated the patient and i agree with the note, assessment and plan documented by Marcia Dewitt APRN. Mr. Burr is a very pleasant 83-year-old male with asymptomatic severe coronary artery calcification via non dedicated chest CT. The patient is active, walks half hour a day without chest pain or dyspnea. No swelling or dizziness. No prior MO, stroke, or cardiac testing. We had adetailed discussion about the findings and the pros and cons with conservative vs. Invasive testingapproaches. He expressed understanding and opted for the former approach. We will obtain an echocardiogram to document LVEF and rule out valve disease (3/6 systolic murmur RUSB heard). Suggested the a ddition of 81 mg aspirin daily if tolerated. Kerry Brannon M.D. documented in this encounter Plan of Treatment Upcoming Encounters Date Type Department Care Team (Late st Contact Info) Description 08/25/2024 1:30 PM INDUSTRIAL CONVEYOR BELT REPAIRER Office Visit Department of Dermatology in [address] [phone] Gloria Rodrigez M.D. [address] [place] [address] Discharge Disposition: Home or Self Care documented as of this encounter Results * (TTE) 2D ECHO [...] 9. There are no previous [facility] echocardiograms available for comparison. Procedure Note [...] 9. There are no previous [facility] echocardiograms available forcomparison. Findings LEFT VENTRICLE:Normal [...] documented in this encounter Visit Diagnoses Diagnosis Abnormal Coronary Calcium Computed Tomography- Primary Murmur Heart Hyperlipidemia Murmur Heart documented in this encounter Care Teams Newspaper Reporter Relationship Specialty Start Date End Date Elsewhere, Pcp PCP - General Engineer [employer] 12/26/23 documented as of this encounter
--- OUTSIDE RECORDS SUMMARY | 2024-04-02 13:42 | XMS_ITS | Encounter Summary ---
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 [address] [place] [address] [facility] Referral ID Status Reason Start Date Expiration Date Visits Re quested Visits Authorized [id number] Closed 08/13/2023 08/12/2024 1 1 Encounter Details Date Type Department Care Team (Latest Contact Info) Description 02/11/2024 2:06 PM CDT - 02/11/2024 2:46 PM CDT Hospital Encounter Department of Radiology, [facility], in [place], [place] [address] [place] [address] Cirilo Jay Jr., D.O. [address] [place] [phone] Cancer Renal Cell Carcinoma Personal History; Hyperlipidemia [...] pur e alcohol) [facility] [employer] [facility] [employer] Answer Date Recorded In the past 12 months has e [employer], [employer], oil, or water [employer] threatened to shut off services in your [...] st Contact Info) Description 08/25/2024 1:30 PM ELECTRICIAN APPRENTICE Office Visit Department of Dermatology in [address] [phone] Gloria Rodrigez M.D. 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 Chest otherwisenegative. Cirilo Jay Jr. D.O. 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
== END 2024-04-01 09:01 | disposition home or self-care (01) ==
LOC: NFLDREF 04-02 13:39
PROVIDERS: PCP Internal Medicine; Referring Provider Internal Medicine; Visit Provider Internal Medicine
DX: E78.5 Hyperlipidemia, unspecified (principal); N40.0 Benign prostatic hyperplasia without lower urinary tract symptoms; Z12.5 Encounter for screening for malignant neoplasm of prostate; Z13.228 Encounter for screening for other metabolic disorders
CPT/HCPCS: 80053; 80061; G0103

== ENCOUNTER 2024-08-06 07:57 | Outpatient (CLI) | payer MEDICARE, BC, SELFPAY ==
--- OUTSIDE RECORDS SUMMARY | 2024-08-08 12:52 | XMS_ITS | Encounter Summary ---
Author Organization [facility] Address [address], [place] [address] Care Team Providers Care Bobbin Hauler Name Role Phone Robert Burton MD Primary Care Provider [phone]- [phone] Encounter Details Date Type Department Care Team (Late st Contact Info) Description 04/26/2024 Notes/Orders [facility] [address] [place] [address] Josiah Hameed MD [address] [place] [phone] Social History Tobacco Use Types Packs/Day Years [...] on filedocumented in this encounter Care Teams Bobbin Hauler Relationship Specialty Start Date End Date Robert Burton MD [address] [place] [address] PCP - General 04/18/23 documented as of this encounter
--- OUTSIDE RECORDS SUMMARY | 2024-08-08 12:52 | XMS_ITS | Encounter Summary ---
Author Organization [facility] Address [address] [place] [address] Care Team Providers Care Pebble Mill Operator Name Role Phone None Reported, Pcp Primary Care Provider Unavail able Encounter Details Date Type Department Care Team (Latest Contact Info) Description 07/22/2024 7:44 AM FINANCIAL REPORTING ADVISOR - 07/22/2024 9:15 AM [facility] Hospital Encounter Department of Laboratory Medicine and Pathology, [facility] in [place], [place] [address] [place] [address] Issa Kam M.D. [address] [place] [address] Cancer Renal Cell Carcinoma Personal History Discharge Disposition: Home or Self Care Social History Tobacco Use Types Packs/Day Years Used Date Smoking Tobacco: Never Passive Smoke Exposure: Never Smokeless Tobacco: Never Alcohol Use Standard Drinks/Week Comments Not Currently 0 (1 standard drink = 0.6 oz pur e alcohol) [facility] Utilities Answer Date Recorded In the past 12 months has [employer], gas, oil, or water [employer] threatened to shut off services in your [...] Assigned at Male 11/29/2023 8:24 PM CDT Legal Sex Male 4:24 AM FINANCIAL REPORTING ADVISOR Gender Identity Male 11/29/2023 8:24 PM CDT Sexual Orientation Straight 11/29/2023 8: 24 PM CDT documented as of this encounter Medications at Time of Discharge acetaminophen (TYLENOL) 500 mg tablet Take 1 [...] by mouth daily. 180 capsule 3 02/14/2024 5 documented as of this encounter Plan of Treatment Upcoming Encounters Date Type Department Care Team (Late st Contact Info) Description 08/25/2024 1:30 PM FINANCIAL REPORTING ADVISOR Office Visit Department of Dermatology in [address] [phone] Gloria Rodrigez M.D. [address] [place] [address] Discharge Disposition: Home or Self Care documented as of this encounter Procedures Procedure Name Priority Date/Time Associated Diagnosis Comments BASIC METABOLIC PANEL, S/P Routine 07/22/2024 7:50 AM FINANCIAL REPORTING ADVISOR Cancer Renal Cell Carcinoma Personal History documented in this encounter Results * (ABNORMAL) Basic Metabolic Panel (07/22/2024 7:50 AM FINANCIAL REPORTING ADVISOR) Potassium, S 4.5 3.6 - 5.2 mmol/L 07/22/2024 8:50 AM FINANCIAL REPORTING ADVISOR DTL Sodium, S 140 135 - 145 mmol/L 07/22/2024 8:50 AM FINANCIAL REPORTING ADVISOR DTL Chloride, S 109(H) 98 - 107 mmol/L 07/22/2024 8:50 AM FINANCIAL REPORTING ADVISOR DTL Bicarbonate, S 23 22 - 29 mmol/L 07/22/2024 8:50 AM FINANCIAL REPORTING ADVISOR DTL Anion Gap 8 7 - 15 07/22/2024 8:50 AM FINANCIAL REPORTING ADVISOR DTL BUN (Blood Urea Nitrogen), S 25(H) 8 - 24 mg/dL 07/22/2024 8:50 AM FINANCIAL REPORTING ADVISOR DTL Creatinine 1.44(H) 0.74 - 1.35 mg/dL 07/22/2024 8:50 AM FINANCIAL REPORTING ADVISOR DTL Estimated GFR (eGFR) 49(L) >=60 mL/min/BSA 07/22/2024 8:50 AM FINANCIAL REPORTING ADVISOR DTL Comment: Estimated GFR calculated using the 2020 CKD_EPI creatinine equation. Calcium, Total, S 9.3 8.8 - 10.2 mg/dL 07/22/2024 8:50 AM FINANCIAL REPORTING ADVISOR DTL Glucose, S 98 70 - 140 mg/dL 07/22/2024 8:50 AM FINANCIAL REPORTING ADVISOR DTL Blood (Blood, Venous) 07/22/2024 7:50 AM FINANCIAL REPORTING ADVISOR 07/22/2024 8:33 AM FINANCIAL REPORTING ADVISOR us Issa Kam M.D. LAB BLOOD ADD-ON Final Re sult [facility] [place] [address] [place] [address], [place] DTL [facility] [address] [place] [address] documented in this encounter Visit Diagnoses Diagnosis Cancer Renal Cell Carcinoma Personal History documented in this encounter Care Teams Pebble Mill Operator Relationship Specialty Start Date End Date None Reported, Pcp PCP - General 07/18/24 documented as of this encounter
--- OUTSIDE RECORDS SUMMARY | 2024-08-08 12:52 | XMS_ITS | Clinical Summary ---
Author Organization [facility] Address [address] [place] [address] Care Team Providers Care Lactation Nurse Name Role Phone None Reported, Pcp Primary Care Provider Unavail able Source Comments Patient records contain information from all sites at [facility]. For routine questions regarding patient records, call [phone] during business hours, M-F 8:00 AM - 5:00 PM Central Time. Record requests for emergency care only can be directed to [phone] at any time.[facility] Allergies No known active allergies Medications cycloSPORINE (RESTASIS MULTIDOSE) 0.05 % drops oththalmic suspension Administer 1 drop into affected eye(s) 2 (two) times a day. Active simvastatin (ZOCOR) 40 mg tablet Take 40 mg by mouth daily. Active acetaminophen (TYLENOL) 500 mg tablet Take 1 tablet by mouth at bedtime as needed. 3 Active multivitamin tablet Take 1 tablet by mouth daily. Active tamsulosin (FLOMAX) 0.4 mg 24 hr capsule Take 2 capsules (0.8 mg total) by mouth daily. 180 capsule 3 4 02/14/20 Active Active Problems Problem Noted Date Diagnosed Date Chronic Kidney Disease (CKD) , Stage 3a Glomerular Filtration Rate (GFR) 45 To 59 07/22/2024 Hyperlipidemia Mixed 08/13/2023 Gastroesophageal Reflux Disease Without Esophagi tis 08/13/2023 Benign Prostatic Hyperplasia Without Obstruction 08/13/2023 Solitary Kidney Acquired 08/13/2023 Cancer Renal Cell Carcinoma Personal History 12/2022 Encounters Date Type Department Care Team Description 07/22/2024 2:30 PM LICENSING COORDINATOR Office Visit Department of Urology in [place], [place] [address] [place] [phone] Ronda Nowak P.A.-C. Cancer Renal Cell Carcinoma Personal History (Primary Dx); Solitary Kidney Acquired; Chronic Kidney Disease (CKD), Stage 3a Glomerular Filtration Rate (GFR) 45 To 59 (HCC) 07/22/2024 9:16 AM LICENSING COORDINATOR - 07/22/2024 11:59 PM LICENSING COORDINATOR Hospital Encounter Department of Radiology, [facility] in [place], [place] [address] [place] [phone] Issa Kam M.D. Cancer Renal Cell Carcinoma Personal History Discharge Disposition: Home or Self Care 07/22/2024 7:44 AM LICENSING COORDINATOR - 07/22/2024 9:15 AM LICENSING COORDINATOR Hospital Encounter Department of Laboratory Medicine and Pathology, [facility] in [place], [place] [address] [place] [phone] Issa Kam M.D. Cancer Renal Cell Carcinoma Personal History Discharge Disposition: Home or Self Care 07/21/2024 12:45 PM LICENSING COORDINATOR Clinical Communication Virtual Review in [place], [place] 200 [place] [phone] Pre-visit Intake from Last 3 Months Family History Medical [...] drink = 0.6 oz pur e alcohol) [facility] Utilities Answer Date Recorded In the past 12 months has [employer], gas, oil, or water [employer] threatened to shut off services in your [...] PM CDT Legal Sex Male 4:24 AM LICENSING COORDINATOR Gender Identity Male 11/29/2023 8:24 PM CDT [...] oz) 02/13/2024 8:38 A M CDT Height 180.3 cm (5' 11) 07/22/2024 10:08 AM LICENSING COORDINATOR Body Mass Index 31.39 02/13/2024 8:38 AM CDT Plan of Treatment Upcoming Encounters Date Type Department Care Team (Late st Contact Info) Description 08/25/2024 1:30 PM LICENSING COORDINATOR Office Visit Department of Dermatology in [address] [phone] Gloria Rodrigez M.D. [address] [place] [phone] Discharge Disposition: Home or Self Care Health Maintenance Due Date Last Done Comments Visit: Annual, age 65+ (or Medicare and <65) 1940 Visit: Medicare Annual Wellness 1940 RSV vaccine - (32-36 weeks) or 60+ years (1 - 1-dose 75+ series) 2016 Depression Screening (Annual PHQ-2) 09/10/2023 COVID-19 Vaccine (2023- season) 2024 07/12/2021, 10/25/2020, 10/01/2020 Influenza Vaccine (#1) 2024 , 07/10/2022, 05/20/2022, Additional history exists DTaP,Tdap,and Td Vaccines (7 - Td or Tdap) 04/07/2031 04/07/2021, 03/30/2021, 02/10/2011, Additional history exists Pneumococcal vaccine (65+ years) Completed 03/27/2016, 06/10/2015, 05/24/2015, Additional history exists Zoster Vaccines Completed 03/31/2020, 02/08, 12/25/2018, Additional history exists Fall Risk Screen (Annual) Completed 01/04/2024 IPV Vaccines Aged Out No longer eligi ble based on patient's age to complete this topic Procedures Procedure Name Priority Date/Time Associated Diagnosis Comments CT ABDOMEN PELVIS WITH IV CONTRAST RAD - Routine (most inpatients and all outpatients) 07/22/2024 11:04 AM LICENSING COORDINATOR Cancer Renal Cell Carcinoma Personal History CT CHEST WITH IV CONTRAST RAD - Routine (most inpatients and all outpatients) 07/22/2024 11:04 AM LICENSING COORDINATOR Cancer Renal Cell Carcinoma Personal History BASIC METABOLIC PANEL, S/P Routine 07/22/2024 7:50 AM LICENSING COORDINATOR Cancer Renal Cell Carcinoma Personal History from Last 3 Months Results * CT Abdomen Pelvis with IV Contrast (07/22/2024 11:04 AM LICENSING COORDINATOR) Anatomical Region Laterality Modality Abdomen, Pelvis, Abdominal R ST LOS, Abdominal ARZ LOS, Abdominal FLA LOS N/A Computed Tomograp hy, Computed Tomography 07/22/2024 10:4 2 AM LICENSING COORDINATOR Impressions 07/22/2024 11:23 AM LICENSING COORDINATOR 1. No evidence of metastatic disease within the abdomen or pelvis. 2. Stable prominent lymph nodes. Narrative 07/22/2024 11:23 AM LICENSING COORDINATOR EXAM: CT ABDOMEN PELVIS WITH IV CONTRAST COMPARISON: 02/11/2024 FINDINGS: Status post left nephrectomy. No evidence of recurrent disease at the nephrectomy bed. Normal enhancement of the right kidney. Small right renal cyst. No hydronephrosis. Right renal vein and IVC are patent. Similar prominent mesenteric lymph node measuring up to 1 cm (series 4, image 96). No other enlarged abdominopelvic lymph nodes. Stable 10 mm cystic lesion in the uncinate process of the pancreas (series 3, image 65). No main duct dilation. 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 Mild atrophy and fatty replacement of the pancreas. Subcentimeter right hepatic hypodensity, likely cyst. The gallbladder, spleen and adrenal glands are normal. Diffuse colonic diverticulosis. The small bowel is normal in caliber. Normal appendix. Focal diastasis of the midline anterior abdominal wall (series 4, image 122). Mild prostatic enlargement. Non distended urinary bladder with trace stranding and minimal submucosal fatty deposition. No acute osseous abnormality. Procedure Note Ro Rodríguez M.D. - 07/22/2024 EXAM: CT ABDOMEN PELVIS WITH IV CONTRAST COMPARISON: 02/11/2024 FINDINGS: Status post left nephrectomy. No evidence of recurrent disease at thenephrectomy bed. Normal enhancement of the right kidney. Small right renal cyst. Nohydronephrosis. Right renal vein and IVC are patent. Similar prominent mesenteric lymph node measuring up to 1 cm (series 4,image 96). No other enlarged abdominopelvic lymph nodes. Stable 10 mm cystic lesion in the uncinate process of the pancreas (series3, image 65). No main duct dilation. 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 Mild atrophy and fatty replacement of the pancreas. Subcentimeter right hepatic hypodensity, likely cyst. The gallbladder, spleen and adrenal glands are normal. Diffuse colonic diverticulosis. The small bowel is normal in caliber.Normal appendix. Focal diastasis of the midline anterior abdominal wall (series 4, ). Mild prostatic enlargement. Non distended urinary bladder with tracestranding and minimal submucosal fatty deposition. No acute osseous abnormality. IMPRESSION: 1. No evidence of metastatic disease within the abdomen or pelvis. 2. Stable prominent lymph nodes. Issa Kam M.D. IMMansi CT PROCEDURES Final R esult * CT Chest with IV Contrast (07/22/2024 11:04 AM LICENSING COORDINATOR) Anatomical Region Laterality Modality Chest, Thoracic RST LOS, Tho racic ARZ LOS, Thoracic ARZ LOS, Thoracic FLA LOS N/A Computed Tomography, Compute d Tomography 07/22/2024 10:4 3 AM LICENSING COORDINATOR Impressions 07/22/2024 12:16 PM LICENSING COORDINATOR Negative for metastatic disease in the chest. Narrative 07/22/2024 12:16 PM LICENSING COORDINATOR EXAM: CT CHEST WITH IV CONTRAST COMPARISON: CT chest 12/07/2023. FINDINGS: No worrisome pulmonary nodules. Tiny calcified pulmonary granulomas. Similar scattered linear bands of subsegmental atelectasis/scarring in the lower lobes bilaterally. The central airways are clear. No pleural effusions or pneumothorax. No thoracic lymphadenopathy. Severe coronary artery calcifications. Aortic calcifications including aortic valvular calcifications. Stable caliber of the mid ascending aorta. This exam was performed in conjunction with CT abdomen, which will be reported separately. Procedure Note Mindy Card M.D. - 07/22/2024 EXAM: CT CHEST WITH IV CONTRAST COMPARISON: CT chest 12/07/2023. FINDINGS: No worrisome pulmonary nodules. Tiny calcified pulmonary granulomas.Similar scattered linear bands of subsegmental atelectasis/scarring in thelower lobes bilaterally. The central airways are clear. No pleural effusions or pneumothorax. No thoracic lymphadenopathy. Severe coronary artery calcifications. Aortic calcifications includingaortic valvular calcifications. Stable caliber of the mid ascendingaorta. This exam was performed in conjunction with CT abdomen, which will bereported separately. IMPRESSION: Negative for metastatic disease in the chest. us Issa Kam M.D. IMG CT PROCEDURES Final R esult * (ABNORMAL) Basic Metabolic Panel (07/22/2024 7:50 AM LICENSING COORDINATOR) Potassium, S 4.5 3.6 - 5.2 mmol/L 07/22/2024 8:50 AM LICENSING COORDINATOR DTL Sodium, S 140 135 - 145 mmol/L 07/22/2024 8:50 AM LICENSING COORDINATOR DTL Chloride, S 109(H) 98 - 107 mmol/L 07/22/2024 8:50 AM LICENSING COORDINATOR DTL Bicarbonate, S 23 22 - 29 mmol/L 07/22/2024 8:50 AM LICENSING COORDINATOR DTL Anion Gap 8 7 - 15 07/22/2024 8:50 AM LICENSING COORDINATOR DTL BUN (Blood Urea Nitrogen), S 25(H) 8 - 24 mg/dL 07/22/2024 8:50 AM LICENSING COORDINATOR DTL Creatinine 1.44(H) 0.74 - 1.35 mg/dL 07/22/2024 8:50 AM LICENSING COORDINATOR DTL Estimated GFR (eGFR) 49(L) >=60 mL/min/BSA 07/22/2024 8:50 AM LICENSING COORDINATOR DTL Comment: Estimated GFR calculated using the 2020 CKD_EPI creatinine equation. Calcium, Total, S 9.3 8.8 - 10.2 mg/dL 07/22/2024 8:50 AM LICENSING COORDINATOR DTL Glucose, S 98 70 - 140 mg/dL 07/22/2024 8:50 AM LICENSING COORDINATOR DTL Blood (Blood, Venous) 07/22/2024 7:50 AM LICENSING COORDINATOR 07/22/2024 8:33 AM LICENSING COORDINATOR us Issa Kam M.D. LAB BLOOD ADD-ON Final Re sult [facility] [address] [place] [address], [place] DTL [facility] [address] [place] [address] from Last 3 Months Insurance MEDICARE [facility] Advance Directives For more information, please contact: [phone] Documents on File Type Date Recorded Patient Engraving Press Operator Expl anation Advance Directives 12/28/2023 8:11 AM Denice Christianson HCPOA/ADVOCATE/AGENT/R EPRESENTATIVE/SURROGAT E Healthcare Agents on File Name Relationship Healthcare Agent Relationshi p Communication Denice Burr Spouse Health Care Agent Tanya Burr Daughter Health Care Agent [email or web address] Clyde Christianson Health Care Agent Care Teams Lactation Nurse Relationship Specialty Start Date End Date None Reported, Pcp PCP - General 07/18/24
--- OUTSIDE RECORDS SUMMARY | 2024-08-08 12:52 | XMS_ITS | Encounter Summary ---
Author Organization [facility] Address [address] [place] [address] Care Team Providers Care Manager Stars Name Role Phone None Reported, Pcp Primary Care Provider Unavail able Reason for Referral * Outpatient (Routine) - Authorized Specialty Diagnoses / Procedures Referred By Michele t Referred To Contact Urology Diagnoses Cancer Renal Cell Carcinoma Personal History Leti Chambers APRN, C.N.P., D.N.P. [address] [place] [address] Phone: tel: fax: [facility] Referral ID Status Reason Start Date Expiration Date V isits Requested Visits Authorized [id number] Authorized 07/22/2024 01/21/2026 [address] scan, CXR, and BMP [facility] * Outpatient (Routine) - Authorized Specialty Diagnoses / Procedures Referred By Contac t Referred To Contact Diagnoses Cancer Renal Cell Carcinoma Personal History Procedures DX Chest AP or PA and Lateral 2 Views Leti Chambers APRN, C.N.P., D.N.P. [address] [place] [address] Phone: tel: fax: [facility] Referral ID Status Reason Start Date Expiration Date V isits Requested Visits Authorized [id number] Authorized 07/22/2024 07/22/2025 1 1 ICE [facility]IC THERAPY * MRI/CAT/PET Scan (Routine) - Authorized Specialty Diagnoses / Procedures Referred By Contac t Referred To Contact Radiology Diagnoses Cancer Renal Cell Carcinoma Personal History Procedures CT Abdomen Pelvis with IV Contrast Leti Chambers APRN, C.N.PSarah, D.N.P. [address] [place] [phone] Phone: tel: fax: [facility] Referral ID Status Reason Start Date Expiration Date V isits Requested Visits Authorized [id number] Authorized 07/22/2024 07/22/2025 1 1 [facility] Reason for Visit * Outpatient (Routine) - Closed Specialty Diagnoses / Procedures Referred By Contac t Referred To Contact Urology Issa Kam M.D. [address] [place] [phone] Phone: tel: fax: [facility] Referral ID Status Reason Start Date Expiration Date Visits Re quested Visits Authorized [id number] Closed 12/07/2023 06/07/2025 1 1 Encounter Details Date Type Department Care Team (Late st Contact Info) Description 07/22/2024 2:30 PM HOSPICE MUSIC THERAPY Office Visit Department of Urology in [place], [place] [address] [place] [phone] Ronda Nowak PSarahASarah-Oksana [address] [place] [phone] Cancer Renal Cell Carcinoma Personal History (Primary Dx); Solitary Kidney Acquired; Chronic Kidney Disease (CKD), Stage 3a Glomerular Filtration Rate (GFR) 45 To 59 (HCC) Social History Tobacco Use Types Packs/Day Years Used Date Smoking Tobacco: Never Passive Smoke Exposure: Never Smokeless Tobacco: Never Alcohol Use Standard Drinks/Week Comments Not Currently 0 (1 standard drink = 0.6 oz pur e alcohol) [facility] Utilities Answer Date Recorded In the [...] PM CDT Legal Sex Male 4:24 AM HOSPICE MUSIC THERAPY Gender Identity Male 11/29/2023 8:24 PM CDT Sexual Orientation Straight 11/29/2023 8: 24 PM CDT documented as of this encounter Progress Notes * Leti Chambers APRN, C.N.P., D.N.P. - 07/22/2024 2:30 PM CST SUBJECTIVE CHIEF COMPLAINT Renal cell carcinoma recheck Patient seen on Ronda Nowak PA-C's calendar. HISTORY OF PRESENT ILLNESS is a very pleasant 83 y.o.male who presents today for renal cell carcinoma recheck. His radical nephrectomy was uncomplicated, and his serum creatinine was 1.3 mg/dL. Undergoing active surveillance since that time with CT scans of the abdomen and pelvis in December of 2022 and again inS2022 in [place]. These showed no evidence of recurrent disease. Repeat chest imaging and CT Abdomen negative in November 2023 and February 2024 at [facility]. 02/13/2024: Follow-up with Dr. Jay in nephrology r/t solitary kidney and CKD. 02/27/2024: Evaluated by [facility] for mesenteric lymphadenopathy. Patient has no symptoms r/t his mesenteric lymphadenopathy. No formal follow-up required at this time. Continue to monitor with abdominal CT imaging. Denies hematuria, flank pain, abdominal pain, fever, chills, nausea, vomiting, unintentional weightloss, and recent UTIs. 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 He appears well- developed and well-nourished. No distress. Pulmonary/Chest: Effort normal. Neurological: He is alert and oriented to person, place, and time. Psychiatric: He has a normal mood and affect. His behavior is normal. Judgment and thought content normal. LABORATORY Results for orders placed or performed during the hospital encounter of 07/22/24 Basic Metabolic Panel Collection Time: 07/22/24 7:50 AM Result Value Ref Range Potassium, S 4.5 3.6 - 5.2 mmol/L Sodium, S 140 135 - 145 mmol/L Chloride, S 109 (H) 98 - 107 mmol/L Bicarbonate, S 23 22 - 29 mmol/L Anion Gap 8 7 - 15 BUN (Blood Urea Nitrogen), S 25 (H) 8 - 24 mg/dL Creatinine 1.44 (H) 0.74 - 1.35 mg/dL Estimated GFR (eGFR) 49 (L) >=60 mL/min/BSA Calcium, Total, S 9.3 8.8 - 10.2 mg/dL Glucose, S 98 70 - 140 mg/dL Pathology Report 08/30/2022 (transcribed from outside records) Specimen: A. LEFT KIDNEY - PERM Diagnosis: Left kidney, ureter and adrenal gland, en bloc resection - Tumor type: Renal cell carcinoma, papillary type, showing extensive coagulative tumor necrosis - Tumor size: 14.5 x 12.5 x 10.5 cm - Histologic grade: moderately differentiated, grade 2 of 3 (WHO/ISUP) - Extent of invasion: paracortical; no extrarenal extension is identified - Surgical margins: Negative (Gerota's fascia, renal vasculature, renal pelvis, ureter) - Lymphovascular invasion: not identified - Regional lymph nodes: not submitted - AJCC Tumor stage: pT2b, pN0 - Other findings: - Adrenal gland: no histopathologic abnormalities - Glomeruli: focal glomerulosclerosis - Vasculature: mild arterial and arteriosclerosis - Tubulointerstitium: mild tubal atrophy and fibrosis IMAGING I have personally reviewed the following imaging: CT Abdomen/Pelvis 07/22/2024 1. No evidence of metastatic disease within the abdomen or pelvis. 2. Stable prominent lymph nodes. CT Chest 07/22/2024 IMPRESSION: Negative for metastatic disease in the chest. ASSESSMENT / PLAN #1 Cancer Renal Cell Carcinoma Personal History #2 Solitary Kidney Acquired #3 Chronic Kidney Disease (CKD), Stage 3a Glomerular Filtration Rate (GFR) 45 To 59 (HCC) I had the pleasure of meeting with in clinic today. We reviewed his most recent testing in detail. His CT Chest/Abdomen and BMP were unremarkable for recurrent or metastatic disease. He is reportedly doing well overall. He continues to follow with nephrology for his CKD. Will plan to see him back in [address] Abdomen, CXR, and BMP with follow-up visit on our urology survivorship calendar. PLAN Follow-up in [address] abdomen, chest xray, BMP, and office visit on survivorship calendar. Signed by: Leti Chambers APRN, C.N.PSarah, D.N.P. 07/22/2024 1:27 PM HOSPICE MUSIC THERAPY [facility] documented in this encounter Plan of Treatment Upcoming Encounters Date Type Department Care Team (Late st Contact Info) Description 08/25/2024 1:30 PM HOSPICE MUSIC THERAPY Office Visit Department of Dermatology in [address] [phone] Gloria Rodrigez M.D. [address] [place] [phone] Discharge Disposition: Home or Self Care Scheduled Orders Name Type Priority Associated Diagnoses Orde r Schedule CT Abdomen Pelvis with IV Contrast Imaging RAD - Routine (most inpatients and all outpatients) Cancer Renal Cell Carcinoma Personal History Expected: 01/19/2025, Expires: 10/22/2025 DX Chest AP or PA and Lateral 2 Views Imaging RAD - Routine (most inpatients and all outpatients) Cancer Renal Cell Carcinoma Personal History Expected: 01/19/2025, Expires: 10/22/2025 Basic Metabolic Panel Lab Routine Cancer Renal Cell Carcinoma Personal History Expected: 01/19/2025, Expires: 10/22/2025 Scheduled Referrals Name Type Priority Associated Diagnoses Orde r Schedule Urology office visit (clinic) Outpatient Referral Routine Cancer Renal Cell Carcinoma Personal History Expected: 01/19/2025, Expires: 10/22/2025 documented as of this encounter Visit Diagnoses Diagnosis Cancer Renal Cell Carcinoma Personal History- Primary Solitary Kidney Acquired Chronic Kidney Disease (CKD), Stage 3a Glomerular Filtration Rate (GFR) 45 To 59 (HCC) documented in this encounter Care Teams Manager Stars Relationship Specialty Start Date End Date None Reported, Pcp PCP - General 07/18/24 documented as of this encounter
--- OUTSIDE RECORDS SUMMARY | 2024-08-08 12:52 | XMS_ITS ---
Author Organization [facility] Address [address] [place] [address] Care Team Providers Care Power Saw Operator Name Role Phone Unavailable Unavailable Unavailable Surgery Details Not on file Complications Check Surgery Details section. Procedure Estimated Blood Loss Check Surgery Details section. Procedure Findings Check Surgery Details section. Procedure Specimens Taken Check Surgery Details section.
--- OUTSIDE RECORDS SUMMARY | 2024-08-08 12:52 | XMS_ITS | Encounter Summary ---
Author Organization [facility] Address [address] [place] [phone] Care Team Providers Care Larder Cook Name Role Phone None Reported, Pcp Primary Care Provider Unavail able Reason for Visit * Reason Onset Date Comments Pre-visit Intake 07/21/2024 Encounter Details Date Type Department Care Team (Latest Contact Info) Description 07/21/2024 12:45 PM WORKFORCE MANAGEMENT COORDINATOR Clinical Communication Virtual Review in [place], [place] [address] [place] [phone] Pre-visit Intake Social History Tobacco Use Types Packs/Day Years Used Date Smoking Tobacco: Never Passive Smoke Exposure: Never Smokeless Tobacco: Never Alcohol Use Standard Drinks/Week Comments Not Currently 0 (1 standard drink = 0.6 oz pur e alcohol) [facility] Utilities Answer Date Recorded In the past 12 months has [facility] [employer], gas, oil, or water [employer] threatened to shut off services in your [...] PM CDT Legal Sex Male 4:24 AM WORKFORCE MANAGEMENT COORDINATOR Gender Identity Male 11/29/2023 8:24 PM CDT Sexual Orientation Straight 11/29/2023 8: 24 PM CDT documented as of this encounter Plan of Treatment Upcoming Encounters Date Type Department Care Team (Late st Contact Info) Description 08/25/2024 1:30 PM WORKFORCE MANAGEMENT COORDINATOR Office Visit Department of Dermatology in [address] [phone] Gloria Rodrigez M.D. [address] [place] [phone] Discharge Disposition: Home or Self Care documented as of this encounter Visit Diagnoses Not on filedocumented in this encounter Care Teams Larder Cook Relationship Specialty Start Date End Date None Reported, Pcp PCP - General 07/18/24 documented as of this encounter
--- OUTSIDE RECORDS SUMMARY | 2024-08-08 12:52 | XMS_ITS | Referral Summary ---
Author Organization [facility] Address [address] [place] [id number] Care Team Providers Care Nurse Practitioner Hospitalist Name Role Phone None Reported, Pcp Primary Care Provider Unavail able Source Comments Patient records contain information from all sites at [facility]. For routine questions regarding patient records, call [phone] during business hours, M-F 8:00 AM - 5:00 PM Central Time. Record requests for emergency care only can be directed to [phone] at any time.[facility] Encounters Date Type Department Care Team Description 07/22/2024 7:44 AM GEOLOGICAL ENGINEER - 07/22/2024 9:15 AM GEOLOGICAL ENGINEER Hospital Encounter Department of Laboratory Medicine and Pathology, [facility] in [place], [place] [address] [place] [address] Issa Kam M.D. Cancer Renal Cell Carcinoma Personal History Discharge Disposition: Home or Self Care 07/22/2024 9:16 AM GEOLOGICAL ENGINEER - 07/22/2024 11:59 PM GEOLOGICAL ENGINEER Hospital Encounter Department of Radiology, [place], [place] [address] [place] [address] Issa Kam M.D. Cancer Renal Cell Carcinoma Personal History Discharge Disposition: Home or Self Care 07/22/2024 2:30 PM GEOLOGICAL ENGINEER Office Visit Department of Urology in [place], [place] [address] [place] [address] BoRonda hermosillo P.A.-C. Cancer Renal Cell Carcinoma Personal History (Primary Dx); Solitary Kidney Acquired; Chronic Kidney Disease (CKD), Stage 3a Glomerular Filtration Rate (GFR) 45 To 59 (HCC) 07/21/2024 12:45 PM [facility] Clinical Communication Virtual Review in [address] [address] Pre-visit Intake from Last 3 Months Allergies No known active allergies Medications cycloSPORINE [...] mouth daily. 180 capsule 3 4 02/14/20 25 Active Active Problems Problem Noted Date Diagnosed [...] drink = 0.6 oz pur e alcohol) [facility] Utilities Answer Date Recorded In the past 12 months has [employer], oil, or water [employer] threatened to shut off services in your [...] PM CDT Legal Sex Male 4:24 AM GEOLOGICAL ENGINEER Gender Identity Male 11/29/2023 8:24 PM CDT [...] 180.3 cm (5' 11) 07/22/2024 10:08 AM GEOLOGICAL ENGINEER Body Mass Index 31.39 02/13/2024 8:38 AM CDT Plan of Treatment Upcoming Encounters Date Type Department Care Team (Late st Contact Info) Description 08/25/2024 1:30 PM GEOLOGICAL ENGINEER Office Visit Department of Dermatology in [address] [address] Gloira Rodrigez M.D. [address] [place] [phone] Discharge Disposition: Home or Self Care Procedures Procedure Name Priority Date/Time Associated Diagnosis Comments CT ABDOMEN PELVIS WITH IV CONTRAST RAD - Routine (most inpatients and all outpatients) 07/22/2024 11:04 AM GEOLOGICAL ENGINEER Cancer Renal Cell Carcinoma Personal History CT CHEST WITH IV CONTRAST RAD - Routine (most inpatients and all outpatients) 07/22/2024 11:04 AM GEOLOGICAL ENGINEER Cancer Renal Cell Carcinoma Personal History BASIC METABOLIC PANEL, S/P Routine 07/22/2024 7:50 AM GEOLOGICAL ENGINEER Cancer Renal Cell Carcinoma Personal History from Last 3 Months Results * CT Abdomen Pelvis with IV Contrast (07/22/2024 11:04 AM GEOLOGICAL ENGINEER) Anatomical Region Laterality Modality Abdomen, Pelvis, Abdominal R ST LOS, Abdominal ARZ LOS, Abdominal FLA LOS N/A Computed Tomograp hy, Computed Tomography 07/22/2024 10:4 2 AM GEOLOGICAL ENGINEER Impressions 07/22/2024 11:23 AM GEOLOGICAL ENGINEER 1. No evidence of metastatic disease within the abdomen or pelvis. 2. Stable prominent lymph nodes. Narrative 07/22/2024 11:23 AM GEOLOGICAL ENGINEER EXAM: CT ABDOMEN PELVIS WITH IV CONTRAST [...] the midline anterior abdominal wall (series 4, [id number]). Mild prostatic enlargement. Non distended urinary bladder with tracestranding and minimal submucosal fatty deposition. No acute osseous abnormality. IMPRESSION: 1. No evidence of metastatic disease within the abdomen or pelvis. 2. Stable prominent lymph nodes. Issa Kam M.D. IM CT PROCEDURES Final R esult * CT Chest with IV Contrast (07/22/2024 11:04 AM GEOLOGICAL ENGINEER) Anatomical Region Laterality Modality Chest, Thoracic RST LOS, Tho racic ARZ LOS, Thoracic ARZ LOS, Thoracic FLA LOS N/A Computed Tomography, Compute d Tomography 07/22/2024 10:4 3 AM GEOLOGICAL ENGINEER Impressions 07/22/2024 12:16 PM GEOLOGICAL ENGINEER Negative for metastatic disease in the chest. Narrative 07/22/2024 12:16 PM GEOLOGICAL ENGINEER EXAM: CT CHEST WITH IV CONTRAST COMPARISON: [...] (ABNORMAL) Basic Metabolic Panel (07/22/2024 7:50 AM GEOLOGICAL ENGINEER) Potassium, S 4.5 3.6 - 5.2 mmol/L 07/22/2024 8:50 AM GEOLOGICAL ENGINEER DTL Sodium, S 140 135 - 145 mmol/L 07/22/2024 8:50 AM GEOLOGICAL ENGINEER DTL Chloride, S 109(H) 98 - 107 mmol/L 07/22/2024 8:50 AM GEOLOGICAL ENGINEER DTL Bicarbonate, S 23 22 - 29 mmol/L 07/22/2024 8:50 AM GEOLOGICAL ENGINEER DTL Anion Gap 8 7 - 15 07/22/2024 8:50 AM GEOLOGICAL ENGINEER DTL BUN (Blood Urea Nitrogen), S 25(H) 8 - 24 mg/dL 07/22/2024 8:50 AM GEOLOGICAL ENGINEER DTL Creatinine 1.44(H) 0.74 - 1.35 mg/dL 07/22/2024 8:50 AM GEOLOGICAL ENGINEER DTL Estimated GFR (eGFR) 49(L) >=60 mL/min/BSA 07/22/2024 8:50 AM GEOLOGICAL ENGINEER DTL Comment: Estimated GFR calculated using the 2020 CKD_EPI creatinine equation. Calcium, Total, S 9.3 8.8 - 10.2 mg/dL 07/22/2024 8:50 AM GEOLOGICAL ENGINEER DTL Glucose, S 98 70 - 140 mg/dL 07/22/2024 8:50 AM GEOLOGICAL ENGINEER DTL Blood (Blood, Venous) 07/22/2024 7:50 AM GEOLOGICAL ENGINEER 07/22/2024 8:33 AM GEOLOGICAL ENGINEER Issa Kam M.D. LAB BLOOD ADD-ON Final Re sult [facility] [address] [place] [address], [place] DTL [facility] [address] [place] [address] from Last [address] 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
--- OUTSIDE RECORDS SUMMARY | 2024-08-08 12:52 | XMS_ITS | Encounter Summary ---
[facility] Address [address], [place] [address] Care Team Providers Care Business Process Manager Name Role Phone Robert Burton MD Primary Care Provider [phone]- [phone] Reason for Visit * Auth/Cert (Routine) Specialty Diagnoses / Procedures Referred By Conthesham t Referred To Contact Diagnoses Chronic pain of right knee Procedures Knee Arthroscopic Medial and Lateral Meniscectomy Referral ID Status Reason Start Date Expiration Date Visits Re quested Visits Authorized [id number] 1 1 Encounter Details Date Type Department Care Team (Late st Contact Info) Description 08/23/2023 Hospital Encounter [facility] [address] [place], [place] [phone] Josiah Hameed MD [address] [place] [address] Social History Tobacco Use Types Packs/Day Years [...] knee documented in this encounter Care Teams Business Process Manager Relationship Specialty Start Date End Date Robert Burton MD [address] [place] [address] PCP - General 04/18/23 documented as of this encounter
--- OUTSIDE RECORDS SUMMARY | 2024-08-08 12:52 | XMS_ITS | Encounter Summary ---
Author Organization [facility] Address [address] [place] [address] Care Team Providers Care Acid Etch Operator Name Role Phone None Reported, Pcp Primary Care Provider Unavail able Reason for Referral * MRI/CAT/PET Scan (Routine) - Closed Specialty Diagnoses / Procedures Referred By Torriac t Referred To Contact Radiology Diagnoses Cancer Renal Cell Carcinoma Personal History Procedures CT Abdomen Pelvis with IV Contrast CT Abdomen Pelvis without and with IV Contrast Issa Kam M.D. [address] [place] [address] Phone: tel: fax: [facility] Referral ID Status Reason Start Date Expiration Date Visits Re quested Visits Authorized [id number] Closed 12/07/2023 12/06/2024 1 1 DING WRECKER * MRI/CAT/PET Scan (Routine) - Closed Specialty Diagnoses / Procedures Referred By Michele rivera Referred To Contact Radiology Diagnoses Cancer Renal Cell Carcinoma Personal History Procedures CT Chest with IV Contrast Issa Kam M.D. [address] [place] [address] Phone: tel: fax: [facility] Referral ID Status Reason Start Date Expiration Date Visits Re quested Visits Authorized [id number] Closed 12/07/2023 12/06/2024 1 1 DING WRECKER Reason for Visit * MRI/CAT/PET Scan (Routine) - Closed Specialty Diagnoses / Procedures Referred By Michele t Referred To Contact Radiology Diagnoses Cancer Renal Cell Carcinoma Personal History Procedures CT Chest with IV Contrast Issa Kam M.D. [address] [place] [address] Phone: tel: fax: [facility] Referral ID Status Reason Start Date Expiration Date Visits Re quested Visits Authorized [id number] Closed 12/07/2023 12/06/2024 1 1 Encounter Details Date Type Department Care Team (Latest Contact Info) Description 07/22/2024 9:16 AM BUILDING WRECKER - 07/22/2024 11:59 PM BUILDING WRECKER Hospital Encounter Department of Radiology, [facility], in [place], [place] [address] [place] [address] Issa Kam M.D. [address] [place] [address] Cancer Renal Cell Carcinoma Personal History Discharge Disposition: Home or Self Care Social History Tobacco Use Types Packs/Day Years Used Date Smoking Tobacco: Never Passive Smoke Exposure: Never Smokeless Tobacco: Never Alcohol Use Standard Drinks/Week Comments Not Currently 0 (1 standard drink = 0.6 oz pur e alcohol) [facility] Utilities Answer Date Recorded In the past 12 months has [facility] [employer], oil, or water [employer] threatened to shut off services in your [...] PM CDT Legal Sex Male 4:24 AM BUILDING WRECKER Gender Identity Male 11/29/2023 8:24 PM CDT Sexual Orientation Straight 11/29/2023 8: 24 PM CDT documented as of this encounter Last Filed Vital Signs Vital Sign Reading Time Taken Comments Blood Pressure - - Pulse - - Temperature - - Respiratory Rate - - Oxygen Saturation - - Inhaled Oxygen Concentration - - Weight - - Height 180.3 cm (5' 11) 07/22/2024 10:08 AM BUILDING WRECKER Body Mass Index - - documented in this encounter Medications at Time of Discharge [...] Contact Info) Description 08/25/2024 1:30 PM BUILDING WRECKER Office Visit Department of Dermatology [place] [address] [place] [address] Gloria Rodrigez M.D. [address] [place] [address] Discharge Disposition: Home or Self Care documented as of this encounter Procedures Procedure Name Priority Date/Time Associated Diagnosis Comments CT ABDOMEN PELVIS WITH IV CONTRAST RAD - Routine (most inpatients and all outpatients) 07/22/2024 11:04 AM BUILDING WRECKER Cancer Renal Cell Carcinoma Personal History CT CHEST WITH IV CONTRAST RAD - Routine (most inpatients and all outpatients) 07/22/2024 11:04 AM BUILDING WRECKER Cancer Renal Cell Carcinoma Personal History documented in this encounter Results * CT Abdomen Pelvis with IV Contrast (07/22/2024 11:04 AM BUILDING WRECKER) Anatomical Region Laterality Modality Abdomen, Pelvis, Abdominal R ST LOS, Abdominal ARZ LOS, Abdominal FLA LOS N/A Computed Tomograp hy, Computed Tomography 07/22/2024 10:4 2 AM BUILDING WRECKER Impressions 07/22/2024 11:23 AM BUILDING WRECKER 1. No evidence of metastatic disease within the abdomen or pelvis. 2. Stable prominent lymph nodes. Narrative 07/22/2024 11:23 AM BUILDING WRECKER EXAM: CT ABDOMEN PELVIS WITH IV CONTRAST [...] the midline anterior abdominal wall (series 4, [id number]). Mild prostatic enlargement. Non distended urinary bladder with tracestranding and minimal submucosal fatty deposition. No acute osseous abnormality. IMPRESSION: 1. No evidence of metastatic disease within the abdomen or pelvis. 2. Stable prominent lymph nodes. Issa Kam M.D. IMG CT PROCEDURES Final R esult * CT Chest with IV Contrast (07/22/2024 11:04 AM BUILDING WRECKER) Anatomical Region Laterality Modality Chest, Thoracic RST LOS, Tho racic ARZ LOS, Thoracic ARZ LOS, Thoracic FLA LOS N/A Computed Tomography, Compute d Tomography 07/22/2024 10:4 3 AM BUILDING WRECKER Impressions 07/22/2024 12:16 PM BUILDING WRECKER Negative for metastatic disease in the chest. Narrative 07/22/2024 12:16 PM BUILDING WRECKER EXAM: CT CHEST WITH IV CONTRAST COMPARISON: [...] Negative for metastatic disease in the chest. Issa CARBAJAL CT PROCEDURES Final R esult documented in this encounter Visit Diagnoses Diagnosis Cancer Renal Cell Carcinoma Personal History documented in this encounter Administered Medications Inactive Administered Medications - up to 3 most recent administrations Medication Order MAR Action Action Date Dose Rate Site iohexoL 300 mg iodine/mL solution 1-200 mL (Omnipaque) 1-200 mL, intravenous, Once in imaging, contrast, Starting on Sun07/22/24 at 1008, For 1 dose, Imaging Protocol Orders, Dose per Radiant Medication Guidelines Given 07/22/2024 10:32 AM BUILDING WRECKER 140 mL sodium chloride (PF) 0.9 % injection 1-100 mL 1-100 mL, intravenous, Once, On Sun07/22/24 at 1030, For 1 dose, Imaging Protocol Orders, Dose per Radiant Medication Guidelines Given 07/22/2024 10:32 AM BUILDING WRECKER 50 mL documented in this encounter Care Teams Acid Etch Operator Relationship Specialty Start Date End Date None Reported, Pcp PCP - General 07/18/24 documented as of this encounter
--- OUTSIDE RECORDS SUMMARY | 2024-08-08 12:52 | XMS_ITS | Clinical Summary ---
Author Organization [facility] Address [address], [place] [address] Care Team Providers Care Ton Container Shipper Name Role Phone Robert Burton MD Primary Care Provider +1- [phone] Source Comments You are receiving this document as you are listed as the primary care provider,follow-up provider, or the patient has been referred to you for consultation.This is in compliance with the Medicare and[facility] EHR Incentive Program,which states Providers who transition their patient to another setting of careor provider of care or refers their patient to another provider of care shouldprovide summary care record for each transition of care or referral. [facility] [facility] Allergies Active Allergy Reactions Criticality Noted Date [...] pain of right knee 05/28/2023 Hematuria 07/13/2022 Overview (05/09/2023): Last Assessment & Plan: Hematuria discussed. Recent UC note and labs reviewed. Labs today. Further eval with urology and referral placed. Seek emergent for any severe abd/flank pain. Dry eye syndrome of bilateral lacrimal glands Left knee pain 05/22/2022 Overview (05/22/2022): Added automatically from request for surgery [id number] Actinic keratosis 11/11/2007 Dyschromia 11/11/2007 Overview (05/02/2017): Lentigo Hyperlipidemia 02/07/2006 Esophageal reflux 02/07/2006 Overview (05/02/2017): LW Modifier: chronic belching better with prilosec [...] 56 05/31/2023 10:31 AM CDT Temperature 36 C (96.8 F) 05/31/2023 9:30 AM CDT Respiratory Rate 16 [...] Done Comments Medicare Annual Wellness Visit 1940 RSV (1 - 1-dose 75+ series) 2016 COVID-19 Vaccine ( season) 2024 07/12/2021, 10/25/2020, 10/01/2020 Influenza (#1) 2024 07/10/2022, 01/2021, 05/27/2020, Additional history exists DTaP/Tdap/Td (6 - [...] on patient's age to complete this topic RSV Aged Out No longer eligi ble based on patient's age to complete this topic MCV4 Aged Out No longer eligi ble based on patient's age to complete this topic Advance Directives Documents on File Type Date Recorded 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
== END 2024-08-06 07:58 | disposition home or self-care (01) ==
PROVIDERS: PCP Internal Medicine; Referring Provider Internal Medicine; Visit Provider Internal Medicine Nephrology
DX: N18.9 Chronic kidney disease, unspecified (principal); I10 Essential (primary) hypertension; D64.9 Anemia, unspecified; I25.10 Atherosclerotic heart disease of native coronary artery without angina pectoris
CPT/HCPCS: 80069; 82043; 82570; 82728; 83540; 83550; 87086

== ENCOUNTER 2025-02-10 08:00 | Outpatient (CLI) | payer MEDICARE, BC, SELFPAY | END 2025-02-10 08:01 | disposition home or self-care (01) | LOC: NFLDREF 02-12 09:38 | PROVIDERS: PCP Internal Medicine; Referring Provider Internal Medicine; Visit Provider Internal Medicine Nephrology | DX: N18.9 Chronic kidney disease, unspecified (principal); I12.9 Hypertensive chronic kidney disease with stage 1 through stage 4 chronic kidney disease, or unspecified chronic kidney disease; C64.9 Malignant neoplasm of unspecified kidney, except renal pelvis; D64.9 Anemia, unspecified | CPT/HCPCS: 80069; 82043; 82570; 83970; 84450; 84460; 84550; 86140 ==

== ENCOUNTER 2025-07-27 07:59 | Outpatient (CLI) | payer MEDICARE, BC, SELFPAY | END 2025-07-27 08:00 | disposition home or self-care (01) | LOC: NFLDREF 07-30 06:42 | PROVIDERS: PCP Internal Medicine; Referring Provider Internal Medicine; Visit Provider Internal Medicine Nephrology | DX: C64.9 Malignant neoplasm of unspecified kidney, except renal pelvis (principal) | CPT/HCPCS: 80069; 82043; 82306; 82570; 82728; 83540; 83550; 83970; 84450; 84460; 84550; 86140 ==